=== PATIENT | female | born 1950 | race Caucasian/White ===

== ENCOUNTER 2020-07-15 02:17 | Observation (INO) ==
[2020-07-15] MEDS ORDERED: ONDANSETRON INJ 2 MG/ML 2 ML VIAL IV STA (03:18)
[2020-07-15] MEDS ORDERED: SODIUM CHLORIDE 0.9% 1000ML 1,000 ML IV SCH (03:30)
[2020-07-15 03:37] LABS: Basophils # (auto) 0.02 K/uL (0-0.2); Basophils % (auto) 0.2 %; Eosinophils % (auto) 1.1 %; Hematocrit (blood only) 37.7 % (37-47); Hemoglobin 13.1 g/dL (12.0-16.0); Immature Granulocytes # (auto) 0.02 K/uL (0.00-0.02); Immature Granulocytes % (auto) 0.2 %; Lymphocytes # (auto) 2.04 K/uL (1.2-3.4); Lymphocytes % (auto) 22.4 %; Mean Corpuscular Hemoglobin 30.7 pg (25-34); Mean Corpuscular Hgb Conc 34.7 g/dL (32-36); Mean Corpuscular Volume 88.3 fL (80-100); Monocytes # (auto) 0.59 K/uL (0.11-0.59); Monocytes % (auto) 6.5 %; Neutrophils # (auto) 6.34 K/uL (1.4-6.5); Neutrophils % (auto) 69.6 %; Platelet Count 401 K/uL (130-400); RDW Coefficient of Variation 13.8 % (11.5-14.5); RDW Standard Deviation 44.6 fL (36.4-46.3); Red Blood Count 4.27 M/uL (4.2-5.4); White Blood Count 9.11 K/uL (4.8-10.8)
[2020-07-15 03:42] LABS: Appearance Urine Clear (Clear); Bilirubin Urine Negative (Negative); Blood Urine Negative (Negative); Color Urine Yellow; Glucose Urine UA Negative (Negative); Ketones Urine 1+ (Negative); Leukocyte Esterase Urine Negative (Negative); Nitrite Urine Negative (Negative); Protein Urine Negative (Negative); Specific Gravity Urine 1.008 (1.000-1.030); Urobilinogen Urine Negative (Negative)
[2020-07-15 03:47] LABS: Partial Thromboplastin Time 26.6 Seconds (21.0-31.0)
[2020-07-15] MEDS: MoRPHine SULFATE 4 MG/ML 1 ML CARP\\VIAL IV PRN ×2 (03:52→06:05)
[2020-07-15 04:00] LABS: Alanine Aminotransferase 19 U/L (12-78); Amylase 120 U/L (25-115); Aspartate Aminotransferase 12 U/L (15-37); BUN Creatinine Ratio 12.8 (10-20); Blood Urea Nitrogen 11 mg/dl (7-18); Calcium 9.5 mg/dl (8.5-10.1); Carbon Dioxide 23 mmol/L (21-32); Chloride 108 mmol/L (98-107); Creatinine Clr Calc Pharmacy 63.8 ml/min; Est GFR (African American) 81.6; Est GFR (Non-African American) 70.4; Glucose 134 mg/dl (70-99); Magnesium 2.1 mg/dl (1.8-2.4); Potassium 3.5 mmol/L (3.5-5.1); Sodium 138 mmol/L (136-145)
[2020-07-15 04:06] LABS: Albumin Globulin Ratio 0.9 (0.9-2); Alkaline Phosphatase 79 U/L (45-117); Bilirubin,Total 0.5 mg/dl (0.2-1); Globulin 4.5 gm/dl (2.5-4.0); Lipase 1496 U/L (73-393); Total Protein 8.5 gm/dl (6.4-8.2); Troponin I < 0.015 ng/ml (0-0.045)
--- NOTE | 2020-07-15 05:21 | Emergency Department Note ---
ED Visit Note I saw this patient in conjunction with Rylan Mills PA-C. I agree with his decision making and treatment plan. .
--- NOTE | 2020-07-15 05:26 | Emergency Department Note ---
History of Present Illness General Chief complaint: Abdominal Pain Stated complaint: abdominal pain/gallbladder Time Seen by Provider: 07/15/20 03:02 History of Present Illness Maximum Pain Intensity: 2 This is a 69-year-old female presenting to the emergency department for evaluation of epigastric abdominal pain for the past 4 to 5 days. The patient was initially seen at [facility] for this on Friday,07/11/2020, where she had blood work, ultrasound, and CT scan was performed. The patient does have some of these records with her and she was diagnosed with chronic cholecystitis and discharged home to follow with a general surgeon of her choosing. The patient states over the past 24 hours her symptoms have significantly worsened and are much more intense. The discomfort does worsen with eating and drinking. She rates the pain a 9/10. She does not have distinct chest pain or lower abdominal pain. She is nauseated without vomiting. The patient is diabetic. Home Medications Medication Instructions Recorded Confirmed Type lisinopril 2.5 mg PO QPM 08/17/18 07/15/20 History simvastatin 10 mg PO HS 08/17/18 07/15/20 History lorazepam 1 mg tablet 1 mg PO Q12 PRN 03/03/19 07/15/20 History sitagliptin-metformin [Janumet XR] 1 tab PO DAILY 07/15/20 07/15/20 History Allergies Allergy/AdvReac Type Severity Reaction Status Date / Time No Known Allergies Allergy Verified 07/15/20 02:48 Past Med/Surg History Medical History Anxiety Diabetes Diabetes mellitus, type 2 Headache, paroxysmal hemicrania, chronic Temporal arteritis Uterine cancer Surgical History History of section History of colonoscopy History of hysterectomy Family History Father Diabetes Grandmother (Maternal) Diabetes Grandmother (Paternal) Diabetes Other Family history non-contributory Social History Smoking Status: Current some day smoker Second Hand Exposure: Yes; Do You Dip or Chew Tobacco: No; Tobacco Cessation Education Requested by Patient: No Hx Alcohol Use: Yes Alcohol type: wine Hx Substance Use: No Preferred Language: German Communication Ability: Effective Button Sewer Hand Required: No Beliefs That Will Affect Care: None Current Living Situation: Spouse Other Information That Helps Us Care for You: No Feels Safe at Home: Yes Safety Concerns: Feels Safe At This Time Assistive Devices: None Review of Systems A total of 10 systems reviewed and were otherwise negative Physical Exam Vital Signs Vital Signs - 24 hr 07/15/20 02:21 07/15/20 03:52 07/15/20 04:27 Temperature 36.4 C L Temperature Source Temporal Artery Scan Pulse Rate 86 Pulse Rate [Apical] 69 Respiratory Rate 20 18 Respiratory Effort / Characteristics Non-Labored Spontaneous Respiratory Depth Normal Normal Blood Pressure 122/78 Blood Pressure [Left Arm] 114/57 L Blood Pressure Mean 92 Blood Pressure Mean [Left Arm] 76 Pulse Oximetry 99 95 98 Oxygen Delivery Method Room Air Room Air Room Air Sepsis Recent Fever Within 48 Hours No Sepsis New/Unexplained Change in Mental Status N/A Sepsis Action Taken by Nursing No Action Required 07/15/20 06:06 Temperature Temperature Source Pulse Rate Pulse Rate [Apical] 70 Respiratory Rate 18 Respiratory Effort / Characteristics Non-Labored Spontaneous Respiratory Depth Normal Blood Pressure Blood Pressure [Left Arm] 119/62 Blood Pressure Mean Blood Pressure Mean [Left Arm] 81 Pulse Oximetry 97 Oxygen Delivery Method Room Air Sepsis Recent Fever Within 48 Hours Sepsis New/Unexplained Change in Mental Status Sepsis Action Taken by Nursing VITALS: Vitals are noted on the nurse's note and reviewed by myself. Vital signs stable. GENERAL: Well-developed, well-nourished, white female who appears moderately uncomfortable on examination. HEART: Regular rate and rhythm without murmurs gallops or rubs. LUNGS: Clear to auscultation bilaterally without wheezes, rales or rhonchi. No retractions or accessory muscle use. ABDOMEN: Positive normal bowel sounds x 4. Soft with epigastric tenderness and guarding. MUSCULOSKELETAL: No muscle atrophy, erythema, or edema noted. Full range of motion in all extremities. NEURO: Patient was alert and oriented to person place and time. CN II through XII grossly intact. Course Administered Medications Hydromorphone HCl (Hydromorphone Inj 1 Mg/Ml Syringe) 1 mg IV Q4 PRN PRN Reason: Pain Stop: 07/29/20 08:39 Last Admin: 07/16/20 00:25 Dose: 1 mg Documented by: [id number] Admin: 07/15/20 18:33 Dose: 1 mg Documented by: [id number] Lactated Ringer's (Lr) 1,000 mls @ 200 mls/hr IV .Q5H [facility] Stop: 08/14/20 08:39 Last Admin: 07/15/20 20:53 Dose: 200 mls/hr Documented by: [id number] Infusion: 07/15/20 20:29 Dose: 200 mls/hr Documented by: [id number] Admin: 07/15/20 15:29 Dose: 200 mls/hr Documented by: [id number] Infusion: 07/15/20 15:11 Dose: 200 mls/hr Documented by: [id number] Infusion: 07/15/20 14:20 Dose: 200 mls/hr Documented by: [id number] Infusion: 07/15/20 13:05 Dose: 0 mls/hr Documented by: [id number] Admin: 07/15/20 08:55 Dose: 200 mls/hr Documented by: [id number] Pantoprazole Sodium 40 mg/ (Syringe) 10 mls @ 5 mls/min IV DAILY@1100 [facility] Stop: 08/14/20 10:59 Last Admin: 07/15/20 10:51 Dose: 5 mls/min Documented by: [id number] Insulin Aspart (Insulin Aspart 100 Units/Ml 3 Ml Pen) 0 units SC ACHS [facility] Stop: 08/14/20 08:59 Last Admin: 07/15/20 20:42 Dose: Not Given Documented by: [id number] Admin: 07/15/20 17:37 Dose: Not Given Documented by: [id number] Admin: 07/15/20 13:20 Dose: Not Given Documented by: [id number] Admin: 07/15/20 09:30 Dose: Not Given Documented by: [id number] Lisinopril (Lisinopril 2.5 Mg Tab) 2.5 mg PO QPM [facility] Stop: 08/14/20 20:59 Last Admin: 07/15/20 20:53 Dose: Not Given Documented by: [id number] Lorazepam (Lorazepam 1 Mg Tab) 1 mg PO Q12 PRN PRN Reason: Anxiety Stop: 08/14/20 08:39 Last Admin: 07/15/20 13:05 Dose: 1 mg Documented by: [id number] Ondansetron HCl (Ondansetron Inj 2 Mg/Ml 2 Ml Vial) 4 mg IV Q6H PRN PRN Reason: Nausea Stop: 08/14/20 08:39 Last Admin: 07/15/20 19:24 Dose: 4 mg Documented by: [id number] Discontinued Medications Hydromorphone HCl (Hydromorphone Inj 0.5 Mg/0.5 Ml Syr) 0.5 mg IV Q3H PRN PRN Reason: Pain Stop: 07/29/20 08:39 Last Admin: 07/15/20 15:32 Dose: 0.5 mg Documented by: [id number] Admin: 07/15/20 10:50 Dose: 0.5 mg Documented by: [id number] Sodium Chloride (Nss 1000ml) 1,000 mls @ 999 mls/hr IV .Q1H1M [facility] Stop: 07/15/20 04:30 Last Infusion: 07/15/20 04:54 Dose: 0 mls/hr Documented by: [id number] Admin: 07/15/20 03:52 Dose: 999 mls/hr Documented by: [id number] Morphine Sulfate (Morphine Sulfate 4 Mg/Ml 1 Ml Carp\Vial) 4 mg IV Q15M PRN PRN Reason: Pain Stop: 07/29/20 03:17 Last Admin: 07/15/20 06:05 Dose: 4 mg Documented by: [id number] Admin: 07/15/20 03:52 Dose: 4 mg Documented by: [id number] Ondansetron HCl (Ondansetron Inj 2 Mg/Ml 2 Ml Vial) 4 mg IV NOW STA Stop: 07/15/20 03:19 Last Admin: 07/15/20 03:51 Dose: 4 mg Documented by: [id number] Medical Decision Making Differential Diagnosis Differential diagnosis: Etiologies such as biliary colic, cholecystitis, hepatitis, pancreatitis, cardiac disease, pancreatitis, gastritis, peptic ulcer disease, appendicitis, cystitis, diverticulitis, mesenteric ischemia, inflammatory bowel disease, ileus, bowel obstruction, testicular/adnexal torsion, aortic pathology, shingles, as well as others were considered Laboratory Data Result diagrams: 07/15/20 02:37 07/15/20 02:37 Lab Results 07/15/20 07/15/20 07/15/20 Range/Units 02:37 02:37 02:37 WBC 9.11 (4.8-10.8) K/uL RBC 4.27 (4.2-5.4) M/uL Hgb 13.1 (12.0-16.0) g/dL Hct 37.7 (37-47) % MCV 88.3 (80-100) fL MCH 30.7 (25-34) pg MCHC 34.7 (32-36) g/dL RDW Std Deviation 44.6 (36.4-46.3) fL RDW Coeff of Kyle 13.8 (11.5-14.5) % Plt Count 401 H (130-400) K/uL MPV 10.0 (7.4-10.4) fL Immature Gran % (Auto) 0.2 % Neut % (Auto) 69.6 % Lymph % (Auto) 22.4 % Brown % (Auto) 6.5 % Eos % (Auto) 1.1 % Baso % (Auto) 0.2 % Neut # (Auto) 6.34 (1.4-6.5) K/uL Lymph # (Auto) 2.04 (1.2-3.4) K/uL Brown # (Auto) 0.59 (0.11-0.59) K/uL Eos # (Auto) 0.10 (0-0.5) K/uL Baso # (Auto) 0.02 (0-0.2) K/uL Immature Gran # (Auto) 0.02 (0.00-0.02) K/uL PT 10.0 (9.0-12.0) Seconds INR 1.0 (0.9-1.1) APTT 26.6 (21.0-31.0) Seconds PTT Ratio 1.0 Sodium 138 (136-145) mmol/L Potassium 3.5 (3.5-5.1) mmol/L Chloride 108 H (98-107) mmol/L Carbon Dioxide 23 (21-32) mmol/L Anion Gap 7.0 (3-11) BUN 11 (7-18) mg/dl Creatinine 0.85 (0.6-1.2) mg/dl Est Cr Clr Drug Dosing 63.8 ml/min Est GFR ( Amer) 81.6 Est GFR (Non-Af Amer) 70.4 BUN/Creatinine Ratio 12.8 (10-20) Glucose 134 H (70-99) mg/dl Calcium 9.5 (8.5-10.1) mg/dl Magnesium 2.1 (1.8-2.4) mg/dl Total Bilirubin 0.5 (0.2-1) mg/dl AST 12 L (15-37) U/L ALT 19 (12-78) U/L Alkaline Phosphatase 79 (45-117) U/L Troponin I < 0.015 (0-0.045) ng/ml Total Protein 8.5 H (6.4-8.2) gm/dl Albumin 4.0 (3.4-5.0) gm/dl Globulin 4.5 H (2.5-4.0) gm/dl Albumin/Globulin Ratio 0.9 (0.9-2) Amylase 120 H (25-115) U/L Lipase 1496 H (73-393) U/L Urine Color Urine Appearance (Clear) Urine pH (4.5-7.5) Ur Specific [place] (1.000-1.030) Urine Protein (Negative) Urine Glucose (UA) (Negative) Urine Ketones (Negative) Urine Blood (Negative) Urine Nitrite (Negative) Urine Bilirubin (Negative) Urine Urobilinogen (Negative) Ur Leukocyte Esterase (Negative) COVID-19 Eval Order SARS-CoV-2, RNA, NAAT (NEGATIVE) 07/15/20 07/15/20 07/15/20 Range/Units 02:37 03:45 03:45 WBC (4.8-10.8) K/uL RBC (4.2-5.4) M/uL Hgb (12.0-16.0) g/dL Hct (37-47) % MCV (80-100) fL MCH (25-34) pg MCHC (32-36) g/dL RDW Std Deviation (36.4-46.3) fL RDW Coeff of Kyle (11.5-14.5) % Plt Count (130-400) K/uL MPV (7.4-10.4) fL Immature Gran % (Auto) % Neut % (Auto) % Lymph % (Auto) % Brown % (Auto) % Eos % (Auto) % Baso % (Auto) % Neut # (Auto) (1.4-6.5) K/uL Lymph # (Auto) (1.2-3.4) K/uL Brown # (Auto) (0.11-0.59) K/uL Eos # (Auto) (0-0.5) K/uL Baso # (Auto) (0-0.2) K/uL Immature Gran # (Auto) (0.00-0.02) K/uL PT (9.0-12.0) Seconds INR (0.9-1.1) APTT (21.0-31.0) Seconds PTT Ratio Sodium (136-145) mmol/L Potassium (3.5-5.1) mmol/L Chloride (98-107) mmol/L Carbon Dioxide (21-32) mmol/L Anion Gap (3-11) BUN (7-18) mg/dl Creatinine (0.6-1.2) mg/dl Est Cr Clr Drug Dosing ml/min Est GFR ( Amer) Est GFR (Non-Af Amer) BUN/Creatinine Ratio (10-20) Glucose (70-99) mg/dl Calcium (8.5-10.1) mg/dl Magnesium (1.8-2.4) mg/dl Total Bilirubin (0.2-1) mg/dl AST (15-37) U/L ALT (12-78) U/L Alkaline Phosphatase (45-117) U/L Troponin I (0-0.045) ng/ml Total Protein (6.4-8.2) gm/dl Albumin (3.4-5.0) gm/dl Globulin (2.5-4.0) gm/dl Albumin/Globulin Ratio (0.9-2) Amylase (25-115) U/L Lipase (73-393) U/L Urine Color Yellow Urine Appearance Clear (Clear) Urine pH 6.0 (4.5-7.5) Ur Specific [place] 1.008 (1.000-1.030) Urine Protein Negative (Negative) Urine Glucose (UA) Negative (Negative) Urine Ketones 1+ H (Negative) Urine Blood Negative (Negative) Urine Nitrite Negative (Negative) Urine Bilirubin Negative (Negative) Urine Urobilinogen Negative (Negative) Ur Leukocyte Esterase Negative (Negative) COVID[facility]19 [facility] SARS-CoV-2, RNA, NAAT NEGATIVE (NEGATIVE) Imaging Data Radiologist's Impression: ABDOMINAL ULTRASOUND, RIGHT UPPER QUADRANT HISTORY: Right upper quadrant pain.. COMPARISON: None. FINDINGS: Pancreas: The pancreatic tail is obscured by line bowel gas. Irregular appearance to the pancreas with possible perihepatic fluid. Recommend correlation with pancreatic enzymes to assess for an acute pancreatitis. Liver: The liver is echogenic consistent with fatty change. Gallbladder: No gallbladder wall thickening. No gallstones. CBD: 6 mm. Right kidney: No hydronephrosis. IMPRESSION: 1. An irregular appearance to the pancreas which may demonstrate trace peripancreatic fluid. Recommend correlation with pancreatic enzymes to exclude the possibility of an acute pancreatitis. 2. Hepatic steatosis. 3. Normal gallbladder. No gallstones. ECG Data Attestation: I personally reviewed and interpreted this ECG as follows: Indication: abdominal pain Additional Comments: Normal sinus rhythm @71bpm Normal ECG When compared with ECG of 17-AUG-2018 20:03, No significant change was found MDM Narrative Physical exam and history were performed. Nursing notes, EMR, and Medication List were personally reviewed. Patient appears to have epigastric abdominal discomfort bringing her to the ER. She has been having discomfort for the past several days and is with epigastric tenderness on exam. IV access was established and labs were obtained. She was treated with IV morphine and IV Zofran. The patient was sent to ultrasound for further evaluation. The patient's blood work is as above and was reviewed. She does not have a si gnificantly elevated white blood cell count, gross anemia, or significant electrolyte imbalance. Transaminases are not elevated. Troponin x1 is negative. The patient does have elevated lipase and amylase which would correlate with pancreatitis based on labs and exam. Ultrasound was performed and reviewed by myself and radiology, and also seems to correlate with the pancreatitis. Overall the patient does not appear well for discharge home. The case was discussed with the on-call [facility] hospitalist who agreed to evaluate the patient here in the ER. Please see their dictation for further patient course, plan, and disposition. The chart was completed utilizing [employer] ([employer] Voice Recognition Software. Grammatical errors, random word insertions, pronoun errors, and incomplete sen tences are an occasional consequence of this system due to software limitations, ambient noise, and hardware issues. Any formal questions or concerns about the content, text, or information contained within the body of this dictation should be directly addressed to the provider for clarification. . Impression & Plan Midepigastric pain, Pancreatitis Discharge Plan Visit Data Chief Complaint: Abdominal Pain Stated Complaint: abdominal pain/gallbladder ED Provider: Delilah Pelletier ED Midlevel Provider: Rylan Mills Discharge Problem: Midepigastric pain, Pancreatitis Patient Disposition: Admitted As Inpatient Discharge Instructions Interventions: ED Discharge Assessment Last Done: 07/15/20 08:30
--- NOTE | 2020-07-15 08:32 | Ultrasound Report ---
ABDOMINAL ULTRASOUND, RIGHT UPPER QUADRANT HISTORY: Right upper quadrant pain.. COMPARISON: None. FINDINGS: Pancreas: The pancreatic tail is obscured by line bowel gas. Irregular appearance to the pancreas wit h possible perihepatic fluid. Recommend correlation with pancreatic enzymes to assess for an acute pa ncreatitis. Liver: The liver is echogenic consistent with fatty change. Gallbladder: No gallbladder wall thickening. No gallstones. CBD: 6 mm. Right kidney: No hydronephrosis. IMPRESSION: 1. An irregular appearance to the pancreas which may demonstrate trace peripancreatic fluid. Recommen d correlation with pancreatic enzymes to exclude the possibility of an acute pancreatitis. 2. Hepatic steatosis. 3. Normal gallbladder. No gallstones. ACT 112: Negative or not required by law. Electronically signed by: Edgar Cotter M.D. 07/15/2020 8:30 AM
[2020-07-15] MEDS ORDERED: LORazepam 1 MG TAB PO PRN (08:40)
[2020-07-15] MEDS ORDERED: ACETAMINOPHEN 325 MG TAB PO PRN (08:40)
[2020-07-15] MEDS ORDERED: ONDANSETRON INJ 2 MG/ML 2 ML VIAL IV PRN (08:40)
[2020-07-15] MEDS: LACTATED RINGER'S 1,000 ML IV SCH ×3 (08:55→20:53)
--- NOTE | 2020-07-15 09:20 | Surgery Consultation ---
Date of Consultation July 15, 2020 Assessment & Plan (1) Pancreatitis: -US images and results reviewed, LFT's are all normal -Unsure of the etiology of her pancreatitis, but without cholelithiasis, there is no role currently for cholecystectomy -Agree with GI evaluation for possible EUS/ERCP -Would continue NPO and aggressive IVF hydration -If does not improve, could consider a CT with IV contrast to evaluate pancreas -No plans for surgical intervention currently History of Present Illness Reason for Consultation: Pancreatitis Attending Physician: Laura Kaba MD History of Present Illness This is a 69 yo female who presented to the hospital with abdominal pain. She states she started having sharp upper abdominal pain without radiation one week ago. She was seen in ER in [place] and US there showed thickened GB wall and she had pancreatitis. She was discharged and told to follow up with a surgeon for cholecystectomy. She returned to ER here last night due to increased pain, some nausea, no emesis. No constipation or diarrhea. No melena or hematochezia. No jaundice, tea-colored urine or acholic stools. No history of ETOH use. No new medications. No history of triglyceridemia. Allergies Allergy/AdvReac Type Severity Reaction Status Date / Time No Known Allergies Allergy Verified 07/15/20 02:48 Home Medications Medication Instructions Recorded Confirmed Type lisinopril 2.5 mg PO QPM 08/17/18 07/15/20 History simvastatin 10 mg PO HS 08/17/18 07/15/20 History lorazepam 1 mg tablet 1 mg PO Q12 PRN 03/03/19 07/15/20 History sitagliptin-metformin [Janumet XR] 1 tab PO DAILY 07/15/20 07/15/20 History Patient History Medical History Anxiety Diabetes Diabetes mellitus, type 2 Headache, paroxysmal hemicrania, chronic Temporal arteritis Uterine cancer Surgical History History of section History of colonoscopy History of hysterectomy Family History Father Diabetes Grandmother (Maternal) Diabetes Grandmother (Paternal) Diabetes Other Family history non-contributory Social History Smoking Status: Current every day smoker Second Hand Exposure: No; Hx Alcohol Use: No Hx Substance Use: No Preferred Language: Guatemalan Communication Ability: Effective Emergency Crew Supervisor Required: No Beliefs That Will Affect Care: None Current Living Situation: Spouse Feels Safe at Home: Yes Assistive Devices: Glasses Review of Systems Constitutional: no fever and no chills Eyes: no blind spots and no worsening vision Ear, Nose, Mouth, Throat: no ear pain and no hearing loss Respiratory: no cough and no dyspnea Cardiovascular: no chest pain and no dyspnea on exertion Gastrointestinal: + abdominal pain and + nausea; no vomiting, no constipation, no diarrhea/loose stools, no blood in stools and no melena Genitourinary: no dysuria Musculoskeletal: no back pain and no neck pain Integumentary: no rash, no non-healing lesions and no skin ulcer Neurologic: + headache(s); no falls Psychiatric: no behavioral changes and no depression Hematologic / Lymphatic: no easy bleeding and no easy bruising Physical Exam Constitutional: WD/WN, vitals as above Eyes: PERRL, conjunctivae normal, anicteric sclerae ENMT: external ear and nose normal, oropharynx normal Neck: trachea midline, no thyromegaly Respiratory: normal respiratory effort, lungs clear to auscultation Cardiovascular: RRR, no murmur, no edema Gastrointestinal (Abdomen): Inspection/Auscultation: abdomen normal to inspection; abdomen not distended Percussion/Palpation: + abdomen tender (epigatrum), + guarding (epigastrum) and abdomen soft; no hernia Musculoskeletal: no cyanosis or clubbing, extremities motor strength 5/5 Skin: no rashes, warm and dry Neurologic: PERRL, EOMI, accommodation nl, no face palsy, no dysarthria Psychiatric: A+Ox3, euthymic affect Lymphatic: no inguinal lymphadenopathy Results & Data ([facility]) Vital Signs (Past 12 Hours) Vital Signs Temp Pulse Pulse Resp BP BP Pulse Ox 07/15/20 07:59 66 14 111/64 96 07/15/20 06:06 70 18 119/62 97 07/15/20 04:27 69 18 114/57 L 98 07/15/20 03:52 95 07/15/20 02:21 36.4 C L 86 20 122/78 99 Gallbladder Ultrasound IMPRESSION: 1. An irregular appearance to the pancreas which may demonstrate trace peripancreatic fluid. Recommend correlation with pancreatic enzymes to exclude the possibility of an acute pancreatitis. 2. Hepatic steatosis. 3. Normal gallbladder. No gallstones. PG Care Time/CCT Total # of Minutes Spent Total Time Spent with Patient: Total time spent is greater than 50% in coordination of care (as documented) at patient's floor/unit and/or counseling patient: Coding Level of Care Code 56232 Initial In Care Lvl 3 Diagnoses Pancreatitis K85.90 Chronicity: acute Pancreatitis type: unspecified pancreatitis type (1) Pancreatitis Chronicity: acute Pancreatitis type: unspecified pancreatitis type
[2020-07-15] MEDS: INSULIN ASPART 100 UNITS/ML 3 ML PEN SC SCH ×4 (09:30→20:42)
--- NOTE | 2020-07-15 09:31 | History and Physical Report ---
DATE OF ADMISSION: 07/15/2020 CHIEF COMPLAINT: Abdominal pain. HISTORY OF PRESENT ILLNESS: A 69-year-old male with past medical history significant for type 2 diabetes, hyperlipidemia, hypertension, vitamin D deficiency, trigeminal neuralgia, generalized anxiety disorder, presents with abdominal pain. The patient says since last Friday, she was having abdominal pain in the epigastric region radiating to lower abdomen and back, severe in nature, associated with nausea and on Friday she went to [facility] and CAT scan was done and she was told has chronic cholecystitis and to follow with the surgeon and to be on low-fat diet. She got an appointment on coming Friday at the [facility], and eating just jello, but the pain was not getting better, it got worse, which prompted her to come to the ER today and here lipase is elevated, so admitting for pancreatitis. Denies any fever, chills, no diarrhea or constipation. Normal bladder movements. Has chronic headaches. No blurred vision, no earache, no runny nose, no sore throat, no cough, no dysphagia, no chest pain or shortness of breath. No rash. Otherwise, ambulates and climbs steps okay. ALLERGIES: No known drug allergies. PAST MEDICAL HISTORY: As mentioned above. PAST SURGICAL HISTORY: , colonoscopy, dental surgery, right temporal biopsy, partial hysterectomy. MEDICATIONS: The patient is on lisinopril 2.5 mg p.o. p.m., lorazepam 1 mg p.o. b.i.d. p.r.n., simvastatin 10 mg p.o. at bedtime, Janumet XR 1 tablet p.o. daily. FAMILY HISTORY: Significant for father had diabetes and heart disorder. Mother has hypertension, heart disorder. Sister has diabetes, hypertension. Brother has hypertension. SOCIAL HISTORY: . Smokes 1 pack a day, started in 2017. Alcohol, drinks socially. No drug use. REVIEW OF SYMPTOMS: As per HPI. Rest of review of symptoms negative. PHYSICAL EXAMINATION: GENERAL: The patient is of moderate build, not in acute distress. VITAL SIGNS: Temperature 36.4, pulse 70, respiratory rate 18, blood pressure 119/62, oxygen 97% on room air. HEENT: Pupils equal, round, reactive to light. Oral mucosa dry. NECK: No JVD, no neck masses. CARDIOVASCULAR: S1, S2 heard, regular rate and rhythm, no murmur, no gallop. RESPIRATORY SYSTEM: Normal AP diameter. No accessory muscle use. No wheezing, no crackles. ABDOMEN: Epigastric tenderness present. Mild guarding, no rigidity. No distention. CENTRAL NERVOUS SYSTEM: Cranial nerves II-XII grossly intact, nonfocal. EXTREMITIES: No edema, no erythema. LABORATORY DATA: WBC 9.1, hemoglobin 13.1, hematocrit 37.7, platelets 401, PT 10, INR 1, APTT 26.6. Sodium 138, potassium 3.5, chloride 108, bicarbonate 23, BUN 11, creatinine 0.8, serum glucose 134, calcium 9.5, magnesium 2.1, total bilirubin 0.5, AST 12, ALT 19, alkaline phosphatase 79. Troponin I less than 0.015, amylase 120, lipase 1496. SARS-CoV-2 RNA negative. IMAGING: Gallbladder ultrasound preliminary report showing, unremarkable gallbladder without stones or sludge, no sonographic Grant sign. No wall thickening. The common bile duct measures 6 mm, echogenic liver, likely fatty infiltration. No hydronephrosis, echogenic and slightly irregular appearance of the pancreas, correlate clinically with pancreatic enzymes. EKG: Normal sinus rhythm with rate of 71, no significant change was found. ASSESSMENT AND PLAN: This is a 69-year-old male who presents with abdominal pain and found to have pancreatitis. 1. Acute pancreatitis with elevated lipase at 1496, gallbladder ultrasound showing possible pancreatitis. We will follow the final report. The patient was recently in [facility] on last Friday and CAT scan was done showing possible chronic cholecystitis. We will await the final ultrasound report. We will treat pancreatitis with IV Ringer's lactate 200 mL per hour, n.p.o., IV pain medication p.r.n., IV antiemetics p.r.n. and GI consult. We will also consult surgery for possible chronic cholecystitis. Monitor in the medical floor. 2. Diabetes. Hold home p.o. medication, place on insulin sliding scale. Follow blood sugars. 3. History of hyperlipidemia. Continue statin. 4. History of hypertension, on lisinopril, we will monitor the blood pressure. 5. History of the generalized anxiety disorder, on Ativan p.r.n. 6. Deep venous thrombosis prophylaxis, sequential compression devices. DISPOSITION: Closely monitor in the medical floor. Expect to discharge home and follow with family doctor. Level 1 full code. MTDD
--- NOTE | 2020-07-15 10:15 | Electrocardiogram Report ---
Test Reason : Blood Pressure : / mmHG Vent. Rate : 071 BPM Atrial Rate : 071 BPM P-R Int : 186 ms QRS Dur : 068 ms QT Int : 406 ms P-R-T Axes : 066 024 058 degrees QTc Int : 441 ms Normal sinus rhythm Normal ECG When compared with ECG of 17-AUG-2018 20:03, No significant change was found Confirmed by Marques Santos ([id number]) on 07/15/2020 10:14:47 AM Referred By: REFERRED SELF Confirmed By:Marques Santos
[2020-07-15] MEDS: HYDROmorphone INJ 0.5 MG/0.5 ML SYR IV PRN ×2 (10:50→15:32)
[2020-07-15] MEDS ORDERED: PANTOprazole 40 MG in SYRINGE 0 ML IV SCH (11:00)
--- NOTE | 2020-07-15 12:03 | Gastrointestinal Consultation ---
Date of Consultation July 15, 2020 Assessment & Plan (1) Midepigastric pain: (2) Pancreatitis: Check MRCP now Continue IV LR at 200 ml/hour for first 48 hours Continue Narcotic analgesics and antiemetics as needed Further recommendations to follow above noted testing History of Present Illness Reason for Consultation: Pancreatitis Attending Physician: Laura Kaba MD History of Present Illness Lotus Dutton is a pleasant 69 yo CF who presented to the ER early this AM with complaints of mid-epigastric abdominal pain. She states that the pain began approximately 1 week ago and has been intermittent. She describes the pain as sharp and stabbing with peak pain of 8-9/10 in intensity. She has had associa bry nausea with vomiting, but denies any hematemesis. She states that on 07/11 she presented to [facility] for similar complaints and underwent CT imaging and routine lab work, but was discharged and was told that "I may need my gall bladder out." She states they advised a low fat diet and to come to our ER if her symptoms returned. She arrived in our ER at approximately 1 AM today and was noted to have an elevated lipase and US imaging consistent with pancreatitis. She did not have any biliary ductal dilation noted, and did not have any cholelithiasis. She was admitted and placed on IV LR at 200 ml/hour and was treated supportively with IV analgesia. At the time I saw the patient she continued to complain of mid-epigastric abdominal pain which she rated as 6/10 in intensity. She does note that narcotic analgesics help. She exhibits no drug seeking behavior. She states that she has never had pancreatitis previously, has no family history of pancreatitis, has not had any sick cont acts, and does not drink alcohol regularly. She denies any further complaints. Allergies Allergy/AdvReac Type Severity Reaction Status Date / Time No Known Allergies Allergy Verified 07/15/20 02:48 Home Medications Medication Instructions Recorded Confirmed Type lisinopril 2.5 mg PO QPM 08/17/18 07/15/20 History simvastatin 10 mg PO HS 08/17/18 07/15/20 History lorazepam 1 mg tablet 1 mg PO Q12 PRN 03/03/19 07/15/20 History sitagliptin-metformin [Janumet XR] 1 tab PO DAILY 07/15/20 07/15/20 History Patient History Medical History Anxiety Diabetes Diabetes mellitus, type 2 Headache, paroxysmal hemicrania, chronic Temporal arteritis Uterine cancer Surgical History History of section History of colonoscopy History of hysterectomy Family History Father Diabetes Grandmother (Maternal) Diabetes Grandmother (Paternal) Diabetes Other Family history non-contributory Social History Smoking Status: Current every day smoker Second Hand Exposure: No; Hx Alcohol Use: No Hx Substance Use: No Preferred Language: Sinhala Communication Ability: Effective Hospice Art Therapist Required: No Beliefs That Will Affect Care: None Current Living Situation: Spouse Feels Safe at Home: Yes Assistive Devices: None Review of Systems Review of Systems: All systems reviewed & are unremarkable except as noted in HPI & below Physical Exam Constitutional: WD/WN, vitals as above Eyes: + anicteric sclerae ENMT: external ear and nose normal, oropharynx normal Neck: trachea midline, no thyromegaly Respiratory: normal respiratory effort, lungs clear to auscultation Cardiovascular: RRR, no murmur, no edema Gastrointestinal (Abdomen): Inspection/Auscultation: abdomen normal to inspection and normal bowel sounds; abdomen not distended Percussion/Palpation: + abdomen tender (mid-epigastric area) and abdomen soft Skin: no rashes, warm and dry Psychiatric: A+Ox3, euthymic affect Results & Data ([facility]) Vital Signs (Past 12 Hours) Vital Signs Temp Pulse Pulse Pulse Resp BP BP 07/15/20 08:25 36.7 C 72 16 110/67 07/15/20 07:59 66 14 111/64 07/15/20 06:06 70 18 119/62 07/15/20 04:27 69 18 114/57 L 07/15/20 03:52 07/15/20 02:21 36.4 C L 86 20 122/78 Pulse Ox 07/15/20 08:25 97 07/15/20 07:59 96 07/15/20 06:06 97 07/15/20 04:27 98 07/15/20 03:52 95 07/15/20 02:21 99 PG Care Time/CCT Total # of Minutes Spent Total Time Spent with Patient: Total time spent is greater than 50% in coordination of care (as documented) at patient's floor/unit and/or counseling patient: Coding Level of Care Code 63746 Inpt Consult Level 4 Diagnoses Midepigastric pain R10.13 Pancreatitis K85.90 Chronicity: acute Pancreatitis type: unspecified pancreatitis type (1) Pancreatitis Chronicity: acute Pancreatitis type: unspecified pancreatitis type
--- NOTE | 2020-07-15 14:42 | Magnetic Resonance Report ---
MR MRCP HISTORY: Abnormal ultrasound. Pancreatitis TECHNIQUE: MRCP of the abdomen was performed without contrast according to standard departmental prot ocol. COMPARISON STUDY: Abdominal ultrasound 07/15/2020. FINDINGS: Mild motion artifact resulting in suboptimal evaluation. Lung bases are clear. The liver, g allbladder, spleen, adrenal glands, and kidneys are within normal limits. No retroperitoneal lymphade nopathy. Normal caliber abdominal aorta. Mild thickening involving the second and third portions of t he duodenum with a small amount of adjacent fluid. There is also mild edema both within and surroundi ng the pancreatic head. Findings favor an acute pancreatitis. A duodenitis could also have a similar appearance. The main pancreatic duct does not appear dilated. The common bile duct is suboptimally as sessed due to the motion artifact but appears to be normal and course and caliber. There are no filli ng defects within the common bile duct to suggest a stone. The common bile duct measures 4 mm in diam eter. The main portal vein appears patent. IMPRESSION: 1. There is edema both within and surrounding the pancreatic head and proximal duodenum. This favors an acute pancreatitis. A duodenitis could also have a similar appearance but is likely reactive. Benjamin mmend correlation with pancreatic enzymes. 2. The common bile duct is normal in course and caliber. No evidence for cholelithiasis or choledocho lithiasis. 3. Follow-up nonemergent dedicated CT or MRI of the pancreas is recommended once the patient's pancre atitis has resolved to exclude the less likely possibility of an underlying lesion. ACT 112: Negative or not required by law. Electronically signed by: Edgar Cotter M.D. 07/15/2020 2:41 PM
--- NOTE | 2020-07-15 15:58 | Hospitalist Progress Note ---
Date of Service July 15, 2020 Assessment & Plan (1) Pancreatitis: acute pancreatitis ; admitted with epigastric pain , nauseas with elevated lipase level appreciate input from GI and surgery MRCP( to R/o gall stone pancreatitis ) shows no evidence of choledocholithiasis normal LFT , no gall bladder disease -per surgery -cholecystectomy is not indicated in this setting cont bowel rest , ordered for clear liquid , NPO past midnight cont Aggressive IV hydration . pain control ordered for fasting lipid panel in am r/o severe hypertriglyceridemia ordered for repeat CMP , lipase level in am no evidence of infection , no fever or chills, normal white count DISPOSITION ; plan to d/c home in next 1-2 days if medically stable Admission and Anticipated Discharge Date Admission Date: July 15, 2020 Subjective admitted with epigastric pain /acute pancreatitis : pt reports improvement of abdominal pain after getting IV pain meds nausea is minimum able to tolerate clear liquid diet no fever or chills no chest pain or SOB Review of Systems Review of Systems: All systems reviewed & are unremarkable except as noted in Subjective Physical Exam Constitutional: WD/WN, vitals as above Eyes: PERRL, conjunctivae normal, anicteric sclerae ENMT: external ear and nose normal, oropharynx normal Neck: trachea midline, no thyromegaly Respiratory: normal respiratory effort, lungs clear to auscultation Cardiovascular: RRR, no murmur, no edema Gastrointestinal (Abdomen): Percussion/Palpation: + abdomen tender (epigastric tenderness ) and abdomen soft Musculoskeletal: no cyanosis or clubbing, extremities motor strength 5/5 Skin: no rashes, warm and dry Neurologic: PERRL, EOMI, accommodation nl, no face palsy, no dysarthria Psychiatric: A+Ox3, euthymic affect Results & Data Results & Data ([facility]) Vital Signs (Past 12 Hours) Vital Signs Temp Pulse Pulse Resp BP Pulse Ox 07/15/20 14:44 36.7 C 64 16 112/71 95 07/15/20 08:25 36.7 C 72 16 110/67 97 07/15/20 07:59 66 14 111/64 96 07/15/20 06:06 70 18 119/62 97 07/15/20 04:27 69 18 114/57 L 98 (1) Pancreatitis Chronicity: acute Pancreatitis type: unspecified pancreatitis type
[2020-07-15] MEDS: HYDROmorphone INJ 1 MG/ML SYRINGE IV PRN (18:33)
[2020-07-15] MEDS ORDERED: HYDROmorphone INJ 0.5 MG/0.5 ML SYR IV PRN (20:30)
[2020-07-15] MEDS: lisinopril 2.5 MG TAB PO SCH (20:53)
[2020-07-15] MEDS ORDERED: SIMVASTATIN 10 MG TAB PO SCH (21:00)
[2020-07-16] MEDS: HYDROmorphone INJ 1 MG/ML SYRINGE IV PRN (00:25)
[2020-07-16] MEDS: LACTATED RINGER'S 1,000 ML IV SCH ×2 (01:56→06:38)
[2020-07-16 05:36] LABS: Basophils # (auto) 0.02 K/uL (0-0.2); Basophils % (auto) 0.3 %; Eosinophils # (auto) 0.06 K/uL (0-0.5); Eosinophils % (auto) 0.9 %; Hemoglobin 10.2 g/dL (12.0-16.0); Immature Granulocytes # (auto) 0.01 K/uL (0.00-0.02); Immature Granulocytes % (auto) 0.2 %; Lymphocytes # (auto) 1.97 K/uL (1.2-3.4); Lymphocytes % (auto) 31.1 %; Mean Corpuscular Hemoglobin 30.3 pg (25-34); Mean Platelet Volume 9.5 fL (7.4-10.4); Monocytes # (auto) 0.51 K/uL (0.11-0.59); Monocytes % (auto) 8.1 %; Neutrophils # (auto) 3.76 K/uL (1.4-6.5); Neutrophils % (auto) 59.4 %; Platelet Count 279 K/uL (130-400); RDW Coefficient of Variation 13.6 % (11.5-14.5); RDW Standard Deviation 44.7 fL (36.4-46.3); Red Blood Count 3.37 M/uL (4.2-5.4); White Blood Count 6.33 K/uL (4.8-10.8)
[2020-07-16 05:53] LABS: Albumin Level 2.9 gm/dl (3.4-5.0); BUN Creatinine Ratio 8.9 (10-20); Calcium 8.1 mg/dl (8.5-10.1); Creatinine Clr Calc Pharmacy 73.6 ml/min; Est GFR (African American) 98.1; Est GFR (Non-African American) 84.6; Magnesium 1.9 mg/dl (1.8-2.4)
[2020-07-16 05:58] LABS: Albumin Globulin Ratio 0.8 (0.9-2); Bilirubin,Total 0.3 mg/dl (0.2-1); Globulin 3.7 gm/dl (2.5-4.0); Total Protein 6.6 gm/dl (6.4-8.2)
--- NOTE | 2020-07-16 07:42 | Communication Note ---
Date of Service: July 16, 2020 hb drop noted from 13-10 possible dilutional -pt receiving aggressive iv fluid resuscitation for acute pancreatis no evidence of GI bleed monitor Laura Kaba MD
--- NOTE | 2020-07-16 08:23 | Gastroenterology Progress Note ---
Date of Service July 16, 2020 Assessment & Plan (1) Pancreatitis: Discussed case with Dr. Kaba of Hospitalist service Continue supportive care and advance to low fat diet Advised her to abstain from all alcohol as it is a known pancreatic toxin She will need [facility] for possible [facility] Admission and Anticipated Discharge Date Admission Date: July 15, 2020 Subjective Feeling slightly better today. Still with midepigastric abdominal pain, now 3/10 in intensity, non-radiating, alleviated with narcotic analgesics. She denies any fevers, chills, nausea, vomiting, diarrhea, hematemesis, melena or hematochezia. I discussed results of MRCP with her, including evidence of acute pancreatitis, but no cholelithiasis, or dilation of the CBD or pancreatic duct. Physical Exam Constitutional: WD/WN, vitals as above Respiratory: normal respiratory effort, lungs clear to auscultation Cardiovascular: RRR, no murmur, no edema Gastrointestinal (Abdomen): Inspection/Auscultation: abdomen normal to inspection and normal bowel sounds; abdomen not distended Percussion/Palpation: + abdomen tender (Epigastric area) and abdomen soft Psychiatric: A+Ox3, euthymic affect Results & Data Results & Data ([facility]) Vital Signs (Past 12 Hours) Vital Signs Temp Pulse Pulse Resp BP Pulse Ox 07/16/20 07:03 36.7 C 67 16 122/78 93 07/15/20 23:44 36.6 C 62 14 100/60 95 07/15/20 20:54 59 L 117/70 PG Care Time/CCT Total # of Minutes Spent Total Time Spent with Patient: Total time spent is greater than 50% in coordination of care (as documented) at patient's floor/unit and/or counseling patient: Coding Level of Care Code 02605 Subseq Obs Care Lvl 3 Diagnoses Pancreatitis K85.90
[2020-07-16] MEDS ORDERED: ALUMINUM/MAGNESIUM SUSP 30 ML UDC PO PRN (08:54)
[2020-07-16] MEDS: INSULIN ASPART 100 UNITS/ML 3 ML PEN SC SCH ×4 (09:02→21:20)
[2020-07-16] MEDS: PANTOprazole 40 MG TAB PO SCH (09:40)
--- NOTE | 2020-07-16 10:07 | Surgery Progress Note ---
Date of Service July 16, 2020 Assessment & Plan (1) Pancreatitis: -No plans for any surgical intervention -Agree with follow up with GI for possible EUS -Surgery with no further recommendations. Will sign off at this time. Please call with any questions or concerns. Admission and Anticipated Discharge Date Admission Date: July 15, 2020 Subjective Pt seen and examined. Pain slightly improved. Afebrile. Passing flatus, no BM. Review of Systems Review of Systems: All systems reviewed & are unremarkable except as noted in Subjective Physical Exam Constitutional: WD/WN, vitals as above Eyes: PERRL, conjunctivae normal, anicteric sclerae ENMT: external ear and nose normal, oropharynx normal Neck: trachea midline, no thyromegaly Respiratory: normal respiratory effort, lungs clear to auscultation Cardiovascular: RRR, no murmur, no edema Gastrointestinal (Abdomen): Inspection/Auscultation: abdomen normal to inspection; abdomen not distended Percussion/Palpation: + abdomen tender (epigatrum), + guarding (epigastrum) and abdomen soft; no hernia Musculoskeletal: no cyanosis or clubbing, extremities motor strength 5/5 Skin: no rashes, warm and dry Neurologic: PERRL, EOMI, accommodation nl, no face palsy, no dysarthria Psychiatric: A+Ox3, euthymic affect Lymphatic: no inguinal lymphadenopathy Results & Data ([facility]) Vital Signs (Past 12 Hours) Vital Signs Temp Pulse Resp BP Pulse Ox 07/16/20 07:03 36.7 C 67 16 122/78 93 07/15/20 23:44 36.6 C 62 14 100/60 95 PG Care Time/CCT Total # of Minutes Spent Total Time Spent with Patient: Total time spent is greater than 50% in coordination of care (as documented) at patient's floor/unit and/or counseling patient: Coding Level of Care Code 86119 Subseq Hosp Care Lvl 1 Diagnoses Pancreatitis K85.90
--- NOTE | 2020-07-16 12:23 | Hospitalist Progress Note ---
Date of Service July 16, 2020 Assessment & Plan (1) Pancreatitis: acute pancreatitis ; admitted with epigastric pain , nauseas with elevated lipase level > 1000 no hx of alcohol abuse appreciate input from GI and surgery MRCP shows no evidence of choledocholithiasis normal LFT , no gall bladder disease no evidence of infection , no fever or chills, normal white count appreciate input from surgery -cholecystectomy is not indicated in this setting pt clinically improved with bowel rest , IV fluids lipase level normalized today , tolerating clears , willing to advance diet to full liquid lipid panel shows : well controlled cholesterol and triglyceride Type 2 DM : insulin Sliding scale Drop in H&H : possible due to Aggressive IV hydration ( dilutional ) IV will be d/rodriguez today as lipase level normalized no evidence of GI bleed repeat H&H in am DISPOSITION ; slowly advance diet plan to discharge home possible tomorrow if able to tolerate solid diet will need clinic follow up with GI for further investigation of ( EUS/EGD ) for pancreatitis Admission and Anticipated Discharge Date Admission Date: July 15, 2020 Subjective follow up visit for acute pancreatitis : pt reports feeling a bit better than yesterday /still have epigastric pain 4- 5/10 no diarrhea or loose stool , no vomiting nausea has resolved still does not have much appetite , does not feel hungry has been tolerating clears so far , worried about her blood sugar-as there are not much options in Clear diet except for Jello/posicles willing to try full liquid diet no fever , or chest pain , no cough or SOB Review of Systems Review of Systems: All systems reviewed & are unremarkable except as noted in Subjective Physical Exam Constitutional: WD/WN, vitals as above Eyes: PERRL, conjunctivae normal, anicteric sclerae ENMT: external ear and nose normal, oropharynx normal Neck: trachea midline, no thyromegaly Respiratory: normal respiratory effort, lungs clear to auscultation Cardiovascular: RRR, no murmur, no edema Gastrointestinal (Abdomen): Percussion/Palpation: + abdomen tender (epigastric tenderness ) and abdomen soft Musculoskeletal: no cyanosis or clubbing, extremities motor strength 5/5 Skin: no rashes, warm and dry Neurologic: PERRL, EOMI, accommodation nl, no face palsy, no dysarthria Psychiatric: A+Ox3, euthymic affect Results & Data Results & Data ([facility]) Vital Signs (Past 12 Hours) Vital Signs Temp Pulse Resp BP Pulse Ox 07/16/20 07:03 36.7 C 67 16 122/78 93 (1) Pancreatitis Chronicity: acute Pancreatitis type: unspecified pancreatitis type Acute pancreatitis complication: unspecified Qualified Code(s): K85.90 - Acute pancreatitis without necrosis or infection, unspecified
[2020-07-16] MEDS: lisinopril 2.5 MG TAB PO SCH (21:12)
[2020-07-17 05:59] LABS: Hematocrit (blood only) 32.8 % (37-47); Hemoglobin 11.4 g/dL (12.0-16.0)
[2020-07-17 07:17] LABS: Estimated Average Glucose 157 mg/dl; Hemoglobin A1C 7.1 % (4.5-5.6)
--- NOTE | 2020-07-17 08:03 | Gastroenterology Progress Note ---
Date of Service July 17, 2020 Assessment & Plan (1) Pancreatitis: 69 y/o female admitted with abd pain, elevated lipase > 1000, and imaging c/w acute uncomplicated pancreatitis. MRCP obtained noting edema involving the pancreatic head and proximal duodenum, consistent with acute pancreatitis, vs duodenitis, with CBD normal in course and caliber; no cholelithiasis or choledocholithiasis. Etiology of pancreatitis unclear; she does not drink alcohol, triglycerides were WNL 02/2020, no personal or family history of recurrent pancreatitis/pancreatic cancer. However, she is on several outpatient medications which have had an association with pancreatitis, including Januvia, simvastatin and lisinopril. It would be difficult to pinpoint exactly which medication may be involved, however hospitalist is changing her diabetic medication. With supportive care including IV, her symptoms are resolved today and she is tolerating a regular diet. - Would recommend continuing diet as tolerated; recommend low-fat diet - Recommend continuing to avoid alcohol -In view of her symptoms and appearance of the pancreas and duodenum on imaging, she may benefit from outpatient EUS for further evaluation and she is agreeable to considering that. - Admission and Anticipated Discharge Date Admission Date: July 15, 2020 Supervising Physician Co-Signing Physician Notes Attending attestation I have seen, examined this patient, and agree with the findings and above by our mid-level provider Tammy So, with the following additions Doing well without issues, uncomplicated pancreatitis without definitive etiology Outpt EUS in 4-6 wks to exclude pancreatic abnormality suggesting etiology Ok to D/C given that has tolerated multiple solid food meals without issues May need to see Endocrinology Subjective Patient seen and examined, chart reviewed. Today, feeling much better. Her abdominal pain is resolved. She has had no nausea vomiting, fevers or chills. Tolerated roast beef for dinner last night and full breakfast this morning. Review of Systems Constitutional: as per Subjective / HPI Denies weight loss, jaundice Eyes: No icterus Respiratory: no cough and no dyspnea Cardiovascular: no chest pain and no edema Gastrointestinal: as per Subjective / HPI Physical Exam Constitutional: WD/WN, vitals as above Eyes: + anicteric sclerae Respiratory: normal respiratory effort, lungs clear to auscultation Cardiovascular: RRR, no murmur, no edema Gastrointestinal (Abdomen): normal bowel sounds, soft, nontender, no hepatosplenomegaly Skin: no rashes, warm and dry Psychiatric: A+Ox3, euthymic affect Results & Data ([facility]) Vital Signs (Past 12 Hours) Vital Signs Temp Pulse Resp BP Pulse Ox 07/17/20 07:10 37.2 C 71 16 123/67 95 07/16/20 22:23 37.0 C 61 14 111/67 95 Laboratory Results 07/17/20 07/17/20 07/16/20 Range/Units 08:12 05:37 20:47 Hgb 11.4 L (12.0-16.0) g/dL Hct 32.8 L (37-47) % POC Glucose 116 H 130 H (70-99) mg/dl Estimat Average Glucose mg/dl Hemoglobin A1c (4.5-5.6) % 07/16/20 07/16/20 07/16/20 Range/Units 17:12 12:18 05:17 Hgb (12.0-16.0) g/dL Hct (37-47) % POC Glucose 89 110 H (70-99) mg/dl Estimat Average Glucose 157 mg/dl Hemoglobin A1c 7.1 H (4.5-5.6) % (1) Pancreatitis Acute pancreatitis complication: unspecified Chronicity: acute Pancreatitis type: unspecified pancreatitis type Qualified Code(s): K85.90 - Acute pancreatitis without necrosis or infection, unspecified
[2020-07-17] MEDS: PANTOprazole 40 MG TAB PO SCH (08:24)
[2020-07-17] MEDS: INSULIN ASPART 100 UNITS/ML 3 ML PEN SC SCH ×2 (08:27→12:45)
[2020-07-17] MEDS ORDERED: glipiZIDE ER 2.5 MG TABCR PO ONE (13:33)
--- NOTE | 2020-07-17 13:37 | Communication Note ---
Date of Service: July 17, 2020 pt will be discharged home today home antidiabetic med Herson-Met ( 100/1000 ) mg D/rodriguez due to concern for acute pancreatitis . d/w Diabetic pharmacy pt can be started on Glipizide 5 mg daily hospital follow up will be scheduled with her family physician in a week Laura Kaba MD
--- NOTE | 2020-07-17 14:43 | Discharge Summary ---
Date of Service July 17, 2020 Admission HPI Per Admitting Provider DICTATED BY: Kingsley Hernandez MD DATE OF ADMISSION: 07/15/2020 CHIEF COMPLAINT: Abdominal pain. HISTORY OF PRESENT ILLNESS: A 69-year-old male with past medical history significant for type 2 diabetes, hyperlipidemia, hypertension, vitamin D deficiency, trigeminal neuralgia, generalized anxiety disorder, presents with abdominal pain. The patient says since last Friday, she was having abdominal pain in the epigastric region radiating to lower abdomen and back, severe in nature, associated with nausea and on Friday she went to [facility] and CAT scan was done and she was told has chronic cholecystitis and to follow with the surgeon and to be on low-fat diet. She got an appointment on coming Friday at the [facility], and eating just jello, but the pain was not getting better, it got worse, which prompted her to come to the ER today and here lipase is elevated, so admitting for pancreatitis. Denies any fever, chills, no diarrhea or constipation. Normal bladder movements. Has chronic headaches. No blurred vision, no earache, no runny nose, no sore throat, no cough, no dysphagia, no chest pain or shortness of breath. No rash. Otherwise, ambulates and climbs steps okay. Principal Diagnosis DICTATED BY: Kingsley Hernandez MD DATE OF ADMISSION: 07/15/2020 CHIEF COMPLAINT: Abdominal pain. HISTORY OF PRESENT ILLNESS: A 69-year-old male with past medical history significant for type 2 diabetes, hyperlipidemia, hypertension, vitamin D deficiency, trigeminal neuralgia, generalized anxiety disorder, presents with abdominal pain. The patient says since last Friday, she was having abdominal pain in the epigastric region radiating to lower abdomen and back, severe in nature, associated with nausea and on Friday she went to [facility] and CAT scan was done and she was told has chronic cholecystitis and to follow with the surgeon and to be on low-fat diet. She got an appointment on coming Friday at the [facility], and eating just jello, but the pain was not getting better, it got worse, which prompted her to come to the ER today and here lipase is elevated, so admitting for pancreatitis. Denies any fever, chills, no diarrhea or constipation. Normal bladder movements. Has chronic headaches. No blurred vision, no earache, no runny nose, no sore throat, no cough, no dysphagia, no chest pain or shortness of breath. No rash. Otherwise, ambulates and climbs steps okay. Discharge Exam Constitutional WD/WN, vitals as above Eyes PERRL, conjunctivae normal, anicteric sclerae ENMT external ear and nose normal, oropharynx normal Neck trachea midline, no thyromegaly Respiratory normal respiratory effort, lungs clear to auscultation Cardiovascular RRR, no murmur, no edema Gastrointestinal (Abdomen) Percussion/Palpation: + abdomen tender (epigastric tenderness ) and abdomen soft Musculoskeletal no cyanosis or clubbing, extremities motor strength 5/5 Skin no rashes, warm and dry Neurologic PERRL, EOMI, accommodation nl, no face palsy, no dysarthria Psychiatric A+Ox3, euthymic affect Discharge Data Allergies Allergy/AdvReac Type Severity Reaction Status Date / Time sitagliptin [From ] AdvReac Severe pancreatiti Verified 07/16/20 15:13 s Consultations 07/15/20 05:41 ED Decision to Admit Stat 07/15/20 08:40 Consult Gastroenterology Routine Consult General Surgery Routine Ordered Studies 07/15/20 03:18 US gallbladder Urgent 07/15/20 12:05 MR MRCP Routine Hospital Course (1) Pancreatitis: acute pancreatitis ; admitted with epigastric pain , nauseas with elevated lipase level > 1000 no hx of alcohol abuse appreciate input from GI and surgery MRCP shows no evidence of choledocholithiasis normal LFT , no gall bladder disease no evidence of infection , no fever or chills, normal white count appreciate input from surgery -cholecystectomy is not indicated in this setting pt clinically improved with bowel rest , IV fluids lipase level normalized tolerating solid diet appreciate input from GI stable to be discharged home , clinic follow up in 4-6 weeks for EGD /EUS lipid panel shows : well controlled cholesterol and triglyceride Type 2 DM : insulin Sliding scale was on Januvia /Metformin combination ( Janumet) -d/rodriguez for concern of adverse drug reaction ( Januvia -acute pancreatitis ) HbA1c 7 pt is discharged on PO Glipizide 5 mg daily will be followed with family physician on discharge Drop in H&H : Dilutional no evidence of GI bleed repeat H&H in am -stable DISPOSITION ; discharge home today will need clinic follow up with GI for further investigation of ( EUS/EGD ) for pancreatitis plan of care D/w patient , all questions answered Total Time Total Time Spent Total Time Spent (In Minutes): approx 35 mi ns Total Time Includes: Examination of the Patient, Discharge Planning and Medication Reconciliation Discharge Plan Discharge Items Patient Disposition: Home - Self-Care Reason For Visit: ABDOMINAL PAIN Discharge Diagnosis: Acute Pancreatitis Activity: Resume your previous activity Non-emergency contact: Primary Care Provider Call non-emergency contact if: you have any medication questions Follow-up/Referrals: Quintin Murphy CRNP [Nurse Practitioner] - Sri Morse DO [Primary Care Provider] - (Date & Time 07/20/2020 11:00 AM Provider Sri Morse DO Department [facility], [place] ) Diet: Low Fat Diet Comment: low fat diet till evaluated by GI Addtl Attending Provider Instructions: Please take all medications as instructed on discharge list below. It is recommended that you follow-up with your primary care physician within 1-2 weeks of hospital discharge to ensure you are still doing well. Please call if you have any questions or problems. You can reach a [facility] hospitalist on duty at [facility] 24 hours a day by calling [phone] Gastroenterology follow up in 4-6 weeks for out patient EGD and EUS ( endoscopic ultrasound ) Addtl [employer] Provider Instructions: DO NOT TAKE JANUMET XR ( JANUVIA /METFORMIN ) INCREASED RISK FOR RECURRENT PANCREATICS ASSOCIATED WITH JANUVIA You are started on a new Antidiabetic med Glipizide XL 5 mg take 1 tablet daily , new prescription sent to your pharmacy Pending Studies at Discharge: No Stand-Alone Forms: My [facility], Smoking Cessation Medications and DC Order Prescriptions: New glipizide 5 mg tablet extended release 24hr 5 mg PO DAILY Qty: 30 RF: 0 Continued lorazepam [Ativan] 1 mg tablet 1 mg PO Q12 PRN (Reason: Anxiety) RF: 0 simvastatin 10 mg Tablet 10 mg PO HS RF: 0 lisinopril 2.5 mg Tablet 2.5 mg PO QPM RF: 0 Discontinued Janumet XR 100-1,000 mg tablet, ER multiphase 24 hr 1 tab PO DAILY RF: 0 Discharge Orders: Discharge Order (Routine); Ordered 07/17/20 Ordered By: Laura Toth/Other Patient Handouts: Low-Fat Cooking Tips, Managing Type 2 Diabetes, Understanding Pancreatitis, Managing Diabetes: The A1C Test Admission Data Admit Date/Time: 07/15/20 06:23 Attending Provider: Laura Kaba Admit Provider: Kingsley Hernandez Primary Care Provider: Sri Morse Other Providers: Kingsley Hernandez ; Quintin Murphy ; Maddy King ; Rita Henry ; Whitley Gipson ; Thompson Askew ; Noni Bautista ; Priscilla Rosario ; Jesus Rivera ; Terrell Rosas ; Mirna Wilson ; Briana Benavides ; Silvina Stein ; Evelyn Pérez ; Viki Tinajero ; Joshua Way ; Shell Claudio ; Sheron Bautista ; Jeramie Crabtree ; Zeeshan Hurley ; Blaire Covarrubias ; Maddy Knight ; Heath Alexander Jr ; María Vallejo ; Bryan Díaz ; Evelyn Penaloza Other Interventions: Discharge Summary Assessment (RN) Last Done: 07/17/20 13:58
== END 2020-07-17 15:32 | disposition home or self-care (01) ==
LOC: ED 02:17 → INTOOBSV 06:23 → 3N 06:23

== ENCOUNTER 2024-07-30 12:26 | Observation (INO) ==
[2024-07-30 13:17] LABS: Appearance Urine Clear (Clear); Bilirubin Urine Negative (Negative); Blood Urine Negative (Negative); Color Urine Yellow; Glucose Urine UA 3+ (Negative); Ketones Urine 1+ (Negative); Leukocyte Esterase Urine Negative (Negative); Nitrite Urine Negative (Negative); Protein Urine Negative (Negative); Specific Gravity Urine 1.026 (1.000-1.030); Urobilinogen Urine Negative (Negative)
[2024-07-30 13:19] LABS: Basophils # (auto) 0.03 K/uL (0.00-0.20); Basophils % (auto) 0.4 %; Eosinophils # (auto) 0.02 K/uL (0.00-0.50); Eosinophils % (auto) 0.3 %; Hematocrit (blood only) 42.8 % (37.0-47.0); Hemoglobin 14.3 g/dl (12.0-16.0); Immature Granulocytes # (auto) 0.03 K/uL (0.01-0.20); Immature Granulocytes % (auto) 0.4 %; Lymphocytes # (auto) 1.11 K/uL (1.20-3.40); Lymphocytes % (auto) 16.1 %; Mean Corpuscular Hemoglobin 29.4 pg (25.0-34.0); Mean Corpuscular Hgb Conc 33.4 g/dL (32.0-36.0); Mean Corpuscular Volume 87.9 fL (80.0-100.0); Mean Platelet Volume 9.8 fL (9.4-12.4); Monocytes # (auto) 0.37 K/uL (0.11-0.59); Monocytes % (auto) 5.4 %; Neutrophils # (auto) 5.32 K/uL (1.40-6.50); Neutrophils % (auto) 77.4 %; Platelet Count 376 K/uL (130-400); RDW Coefficient of Variation 14.2 % (11.5-14.5); RDW Standard Deviation 45.1 fL (36.4-46.3); Red Blood Count 4.87 M/uL (4.20-5.40); White Blood Count 6.88 K/ul (4.8-10.8)
[2024-07-30 13:38] LABS: Alanine Aminotransferase 10 U/L (7-52); Albumin Globulin Ratio 1.3 (0.9-2); Albumin Level 4.6 gm/dl (3.4-5.0); Alkaline Phosphatase 66 U/L (34-104); Anion Gap 7 (3-11); Aspartate Aminotransferase 14 U/L (13-39); BUN Creatinine Ratio 19.2 (10-20); Bilirubin,Total 0.3 mg/dl (0.2-1.0); Blood Urea Nitrogen 15 mg/dl (6-23); Calcium 9.8 mg/dl (8.6-10.3); Carbon Dioxide 28 mmol/L (21-32); Chloride 103 mmol/L (98-107); Globulin 3.5 gm/dl (2.5-4.0); Glucose 171 mg/dl (70-99(Fasting)); Potassium 4.1 mmol/L (3.5-5.1); Sodium 138 mmol/L (136-145); Total Protein 8.1 gm/dl (6.0-8.3)
--- NOTE | 2024-07-30 13:51 | XRay Report ---
XR chest 1V not portable HISTORY: 74 years-old Female dizzy COMPARISON: 08/17/2018 TECHNIQUE: PA view of the chest FINDINGS: Cardiomediastinal and hilar silhouettes are within normal limits. Spondylitic spurring of the spine. Cholecystectomy. There is no pneumothorax, pleural effusion or pulmonary edema. IMPRESSION: No acute process. ACT 112: Negative or not required by law. The above report was generated using voice recognition software. It may contain grammatical, syntax o r spelling errors. Electronically signed by: Rishabh Mohr M.D. 07/30/2024 1:50 PM
--- NOTE | 2024-07-30 15:29 | Electrocardiogram Report ---
Test Reason : Blood Pressure : */* mmHG Vent. Rate : 86 BPM Atrial Rate : 86 BPM P-R Int : 170 ms QRS Dur : 62 ms QT Int : 366 ms P-R-T Axes : 59 -1 53 degrees QTcB Int : 437 ms Normal sinus rhythm Left atrial enlargement Low voltage QRS Borderline ECG When compared with ECG of 29-Jul-2024 17:31, No significant change was found Confirmed by Ryne Cesar ([id number]) on 07/30/2024 3:29:42 PM Referred By: Confirmed By: Ryne Cesar
[2024-07-30] MEDS: ONDANSETRON INJ 2 MG/ML 2 ML VIAL IV STA (16:22)
[2024-07-30] MEDS: diazePAM 5 MG/ML 10ML VIAL IV STA ×2 (16:22→19:08)
[2024-07-30] MEDS: MECLIZINE HCL 25 MG TAB PO STA (16:22)
--- NOTE | 2024-07-30 19:09 | Emergency Department Note ---
Impression & Plan Dizziness, Vertigo ED Provider Note NAME: CARMEN ARRIOLA AGE: 74 SEX: Female INFORMANT: Patient and ED PROVIDER(S): Rober Pablo MD CHIEF COMPLAINT: Dizziness PLAN: Disposition: Discharge Outpatient prescription management: Zofran, meclizine, Ativan Referral: PCP follow-up for reassessment and consideration for audiology referral MEDICAL DECISION MAKING: Patient presented back because of continued dizziness. She had taken 1 dose of meclizine. She had some nausea. IV was established. Patient was treated with Zofran, oral meclizine and 1 dose of IV Valium. Blood work was unremarkable. Chest x-ray was negative. ECG did not show any acute ischemic change. Patient had negative CT angiography and MR imaging yesterday. I did review those reports and no acute findings were noted. On reassessment the patient was feeling better. She was not exhibiting any orthostatic hypotension. She did have mild change with elevation of her heart rate. Patient was able to ambulate to the bathroom. She noted feeling much better but still had some mild dizziness with head movement. If she does not move her head she has no symptoms. When the dizziness comes that does bring on some nausea. I did give her a second dose of IV Valium and monitored her. Patient had ambulatory trial and unfortunately was still symptomatic to the point where she was off balance. At this point I do not think she safe going home and the patient feels the same. Consultation was made with Dr. Ross Najera, [facility] hospitalist service. Case discussed diagnostics were reviewed. History reviewed as well. Patient was evaluated in the ER and admitted for further management. Care/management discussed with: manager laundry, hospitalist Level of care consideration(s): After review of the information above and other included data, I feel the patient c requires escalation of care to admission. Triage Nursing notes: reviewed and agree them. Vital Signs: reviewed and remarkable for no significant abnormalities Additional History obtained from: none Chronic Medical/Social Conditions affecting care: Diabetes Prior/ Outside/ External records reviewed: none Differential Diagnosis: Benign positional vertigo, dehydration, hypovolemia, anemia, tumor, infection, hypoglycemia, electrolyte abnormalities, cardiac sources, intracerebral event, toxicologic, neurologic, as well as other pathologies. Diagnostics, independently interpreted by me: ECG: Twelve-lead ECG was normal sinus rhythm at 86 bpm. Left atrial enlargement. No ST elevation. No T wave inversion. Cardiac Monitoring: Cardiac monitoring ordered by me: The patient was placed on continuous cardiac monitoring and observed. It revealed a normal sinus rhythm at 82 beats per minute without ectopy or evidence of dysrhythmia. Medical decision rules: none Imaging studies: Chest x-ray. Findings: A chest x-ray was performed and revealed no pneumothorax, effusion, infiltrate, pulmonary edema, free air under the diaphragm, or wide mediastinum. Impression: No acute disease. HPI: 74 year old Female arrives for evaluation of dizziness. This started yesterday morning and is persisting. The patient also notes the following associated symptoms, nausea. The patient has taken 1 dose of meclizine today for relieving factors. Current pain is rated as 0/10. Patient states symptoms started when she got up out of bed yesterday. Denied any trauma. Patient was seen in the ED yesterday and treated with meclizine. She was also given Ativan to facilitate imaging. Patient was discharged on meclizine. Pt denies LOC, headache, fevers, chills, diaphoresis, visual changes, neck pain, chest pain, breathing difficulties, vomiting, abdominal pain, back pain, melena, hematochezia, urinary symptoms, numbness, weakness, lymphadenopathy, rash, or other complaints. PAST MEDICAL HISTORY: See Below, diabetes PAST SURGICAL HISTORY: See Below, SOCIAL HISTORY: See Below, HOME MEDICATIONS: See Below ALLERGIES: See Below VITALS: See Below PHYSICAL EXAMINATION: GENERAL: Awake, alert, mildly uncomfortable-appearing, in no distress HENT: Normocephalic, atraumatic. Oropharynx unremarkable. EYES: Normal conjunctiva. Sclera non-icteric. PERRLA. EOMI. Mild lateral nystagmus. No vertical or rotatory nystagmus. NECK: Inspection normal. Non-tender. Supple. No nuchal rigidity. FROM. No masses. RESPIRATORY: Clear to auscultation. No wheezes. No rales. Normal respiratory effort. CARDIAC: Normal rate. Normal rhythm. No murmurs. No rubs. Extremities warm and well perfused. Pulses equal. No JVD. GI: Soft, non-distended. No tenderness to palpation. No rebound or guarding. No masses. RECTAL: Deferred. MUSCULOSKELETAL: Atraumatic. Chest examination reveals no tenderness. The back is symmetrical on inspection without obvious abnormality. There is no CVA tenderness to palpation. No joint edema. LOWER EXTREMITIES: Calves are equal size bilaterally and non-tender. No edema. No discoloration. NEURO: Normal sensorium. No sensory or motor deficits noted. Speech normal. No drift. Normal rapid alternating movements. Normal [id number]. SKIN: No rash or jaundice noted. PROCEDURES: none CRITICAL CARE: none OBSERVATION NOTE: none Past Med/Surg History Problem List Dizziness (Acute) Vertigo (Acute) Cholelithiasis Diabetes Encounter for pre-operative examination Midepigastric pain (Acute) Pancreatitis (Acute) 06/2020 Headache, paroxysmal hemicrania, chronic Idiopathic headaches, possible trigeminal neuralgia > being treated/monitored by PCP Temporal arteritis Biopsy negative 2018 Anxiety Uterine cancer ~1987 History of hysterectomy TIMOTHY History of section x2 Diabetes mellitus, type 2 NIDDM History of colonoscopy Medical History Anxiety Diabetes mellitus, type 2 NIDDM Headache, paroxysmal hemicrania, chronic Idiopathic headaches, possible trigeminal neuralgia > being treated/monitored by PCP Hyperlipidemia Pancreatitis 06/2020 Temporal arteritis Biopsy negative 2018 Trigeminal neuralgia of right side of face Idiopathic headaches, possible trigeminal neuralgia > being treated/monitored by PCP Uterine cancer ~1987 Surgical History History of section x2 History of colonoscopy History of esophagogastroduodenoscopy (EGD) History of hysterectomy TIMOTHY History of temporal artery biopsy Family History Father Diabetes Grandmother (Maternal) Diabetes Grandmother (Paternal) Diabetes Other Family history non-contributory Social History Smoking Status: Never smoker Tobacco Type: Cigarettes Second Hand Exposure: No; Do You Dip or Chew Tobacco: No; Hx Alcohol Use: Yes Alcohol type: wine Hx Substance Use: No Preferred Language: Macanese Communication Ability: Effective Environmental Conservation Professor Required: No Beliefs That Will Affect Care: None Current Living Situation: Spouse Feels Safe at Home: Yes Assistive Devices: Glasses Allergies Allergies Allergy/AdvReac Type Severity Reaction Status Date / Time sitagliptin [From ] AdvReac Severe Pancreatiti Verified 07/30/24 17:27 s Home Meds Home Medications Medication Instructions Recorded Confirmed simvastatin 10 mg tablet 10 mg PO HS 08/17/18 07/30/24 Compound Hrt 1 cap PO BID 02/23/21 07/30/24 lorazepam 0.5 mg tablet 0.5 mg PO DAILY PRN Anxiety 02/23/21 07/30/24 aspirin 81 mg tablet,delayed 81 mg PO DAILY 07/30/24 07/30/24 release ciclopirox 8 % topical solution 1 applic topical DAILY 07/30/24 07/30/24 empagliflozin 25 mg tablet 25 mg PO DAILY 07/30/24 07/30/24 (Jardiance) lamotrigine 25 mg tablet 0 mg PO BID 07/30/24 07/30/24 prasterone (dhea) 25 mg capsule 25 mg PO BID 07/30/24 07/30/24 tirzepatide 2.5 mg/0.5 mL 2.5 mg subcut WK 07/30/24 07/30/24 subcutaneous pen injector (Jerome) Previous Rx's Medication Instructions Recorded meclizine 25 mg tablet 25 mg PO TID PRN dizziness #30 tabs 07/29/24 Results & Data (ED) Vital Signs Vital Signs - 24 hr 07/30/24 12:41 07/30/24 15:15 07/30/24 16:24 Temperature 36.1 C L Temperature Source Temporal Artery Scan Pulse Rate - Lying 82 Pulse Rate - Sitting 82 Pulse Rate - Standing 114 H Pulse Rate 89 Pulse Rate [Apical] 107 H Pulse Rate from SpO2 Sensor Respiratory Rate 18 19 Respiratory Effort / Characteristics Non-Labored Respiratory Depth Normal Respiratory Pattern Regular Blood Pressure - Lying 127/79 Blood Pressure - Sitting 132/78 Blood Pressure- Standing 132/79 Blood Pressure 120/72 Blood Pressure [Right Arm] 132/88 Blood Pressure Mean 88 Blood Pressure Mean [Right Arm] 102 Pulse Oximetry 95 94 Oxygen Delivery Method Room Air Room Air Sepsis Recent Fever Within 48 Hours No Sepsis New/Unexplained Change in Mental Status N/A Sepsis Action Taken by Nursing No Action Required 07/30/24 16:43 07/30/24 17:00 07/30/24 17:27 Temperature Temperature Source Pulse Rate - Lying Pulse Rate - Sitting Pulse Rate - Standing Pulse Rate 90 101 H Pulse Rate [Apical] 82 Pulse Rate from SpO2 Sensor 100 H Respiratory Rate 18 20 Respiratory Effort / Characteristics Respiratory Depth Respiratory Pattern Blood Pressure - Lying Blood Pressure - Sitting Blood Pressure- Standing Blood Pressure 114/66 Blood Pressure [Right Arm] 114/66 Blood Pressure Mean 82 Blood Pressure Mean [Right Arm] 82 Pulse Oximetry 92 91 Oxygen Delivery Method Sepsis Recent Fever Within 48 Hours Sepsis New/Unexplained Change in Mental Status Sepsis Action Taken by Nursing 07/30/24 17:30 07/30/24 17:30 07/30/24 17:30 Temperature Temperature Source Pulse Rate - Lying Pulse Rate - Sitting Pulse Rate - Standing Pulse Rate Pulse Rate [Apical] Pulse Rate from SpO2 Sensor Respiratory Rate Respiratory Effort / Characteristics Respiratory Depth Respiratory Pattern Blood Pressure - Lying Blood Pressure - Sitting Blood Pressure- Standing Blood Pressure 127/68 127/68 127/68 Blood Pressure [Right Arm] Blood Pressure Mean 73 73 73 Blood Pressure Mean [Right Arm] Pulse Oximetry Oxygen Delivery Method Sepsis Recent Fever Within 48 Hours Sepsis New/Unexplained Change in Mental Status Sepsis Action Taken by Nursing 07/30/24 17:30 07/30/24 17:30 07/30/24 17:30 Temperature Temperature Source Pulse Rate - Lying Pulse Rate - Sitting Pulse Rate - Standing Pulse Rate Pulse Rate [Apical] Pulse Rate from SpO2 Sensor Respiratory Rate Respiratory Effort / Characteristics Respiratory Depth Respiratory Pattern Blood Pressure - Lying Blood Pressure - Sitting Blood Pressure- Standing Blood Pressure 127/68 127/68 127/68 Blood Pressure [Right Arm] Blood Pressure Mean 73 73 73 Blood Pressure Mean [Right Arm] Pulse Oximetry Oxygen Delivery Method Sepsis Recent Fever Within 48 Hours Sepsis New/Unexplained Change in Mental Status Sepsis Action Taken by Nursing 07/30/24 17:30 07/30/24 17:30 07/30/24 17:30 Temperature Temperature Source Pulse Rate - Lying Pulse Rate - Sitting Pulse Rate - Standing Pulse Rate Pulse Rate [Apical] Pulse Rate from SpO2 Sensor Respiratory Rate Respiratory Effort / Characteristics Respiratory Depth Respiratory Pattern Blood Pressure - Lying Blood Pressure - Sitting Blood Pressure- Standing Blood Pressure 127/68 127/68 127/68 Blood Pressure [Right Arm] Blood Pressure Mean 73 73 73 Blood Pressure Mean [Right Arm] Pulse Oximetry Oxygen Delivery Method Sepsis Recent Fever Within 48 Hours Sepsis New/Unexplained Change in Mental Status Sepsis Action Taken by Nursing 07/30/24 17:30 07/30/24 17:30 07/30/24 17:33 Temperature Temperature Source Pulse Rate - Lying Pulse Rate - Sitting Pulse Rate - Standing Pulse Rate 86 Pulse Rate [Apical] Pulse Rate from SpO2 Sensor 86 Respiratory Rate 17 Respiratory Effort / Characteristics Respiratory Depth Respiratory Pattern Blood Pressure - Lying Blood Pressure - Sitting Blood Pressure- Standing Blood Pressure 127/68 127/68 Blood Pressure [Right Arm] Blood Pressure Mean 73 73 Blood Pressure Mean [Right Arm] Pulse Oximetry 92 Oxygen Delivery Method Sepsis Recent Fever Within 48 Hours Sepsis New/Unexplained Change in Mental Status Sepsis Action Taken by Nursing 07/30/24 17:54 07/30/24 18:00 07/30/24 18:00 Temperature Temperature Source Pulse Rate - Lying Pulse Rate - Sitting Pulse Rate - Standing Pulse Rate 85 Pulse Rate [Apical] Pulse Rate from SpO2 Sensor 86 Respiratory Rate 16 Respiratory Effort / Characteristics Respiratory Depth Respiratory Pattern Blood Pressure - Lying Blood Pressure - Sitting Blood Pressure- Standing Blood Pressure 115/66 115/66 Blood Pressure [Right Arm] Blood Pressure Mean 79 79 Blood Pressure Mean [Right Arm] Pulse Oximetry 91 Oxygen Delivery Method Sepsis Recent Fever Within 48 Hours Sepsis New/Unexplained Change in Mental Status Sepsis Action Taken by Nursing 07/30/24 18:00 07/30/24 18:00 07/30/24 18:00 Temperature Temperature Source Pulse Rate - Lying Pulse Rate - Sitting Pulse Rate - Standing Pulse Rate Pulse Rate [Apical] Pulse Rate from SpO2 Sensor Respiratory Rate Respiratory Effort / Characteristics Respiratory Depth Respiratory Pattern Blood Pressure - Lying Blood Pressure - Sitting Blood Pressure- Standing Blood Pressure 115/66 115/66 115/66 Blood Pressure [Right Arm] Blood Pressure Mean 79 79 79 Blood Pressure Mean [Right Arm] Pulse Oximetry Oxygen Delivery Method Sepsis Recent Fever Within 48 Hours Sepsis New/Unexplained Change in Mental Status Sepsis Action Taken by Nursing 07/30/24 18:00 07/30/24 18:00 07/30/24 18:00 Temperature Temperature Source Pulse Rate - Lying Pulse Rate - Sitting Pulse Rate - Standing Pulse Rate Pulse Rate [Apical] Pulse Rate from SpO2 Sensor Respiratory Rate Respiratory Effort / Characteristics Respiratory Depth Respiratory Pattern Blood Pressure - Lying Blood Pressure - Sitting Blood Pressure- Standing Blood Pressure 115/66 115/66 115/66 Blood Pressure [Right Arm] Blood Pressure Mean 79 79 79 Blood Pressure Mean [Right Arm] Pulse Oximetry Oxygen Delivery Method Sepsis Recent Fever Within 48 Hours Sepsis New/Unexplained Change in Mental Status Sepsis Action Taken by Nursing 07/30/24 18:00 07/30/24 18:00 07/30/24 18:12 Temperature Temperature Source Pulse Rate - Lying Pulse Rate - Sitting Pulse Rate - Standing Pulse Rate 92 H Pulse Rate [Apical] Pulse Rate from SpO2 Sensor 92 H Respiratory Rate 19 Respiratory Effort / Characteristics Respiratory Depth Respiratory Pattern Blood Pressure - Lying Blood Pressure - Sitting Blood Pressure- Standing Blood Pressure 115/66 115/66 Blood Pressure [Right Arm] Blood Pressure Mean 79 79 Blood Pressure Mean [Right Arm] Pulse Oximetry 92 Oxygen Delivery Method Sepsis Recent Fever Within 48 Hours Sepsis New/Unexplained Change in Mental Status Sepsis Action Taken by Nursing 07/30/24 18:30 07/30/24 18:30 07/30/24 18:30 Temperature Temperature Source Pulse Rate - Lying Pulse Rate - Sitting Pulse Rate - Standing Pulse Rate Pulse Rate [Apical] Pulse Rate from SpO2 Sensor Respiratory Rate Respiratory Effort / Characteristics Respiratory Depth Respiratory Pattern Blood Pressure - Lying Blood Pressure - Sitting Blood Pressure- Standing Blood Pressure 139/68 139/68 139/68 Blood Pressure [Right Arm] Blood Pressure Mean 82 82 82 Blood Pressure Mean [Right Arm] Pulse Oximetry Oxygen Delivery Method Sepsis Recent Fever Within 48 Hours Sepsis New/Unexplained Change in Mental Status Sepsis Action Taken by Nursing 07/30/24 18:30 07/30/24 18:30 07/30/24 18:30 Temperature Temperature Source Pulse Rate - Lying Pulse Rate - Sitting Pulse Rate - Standing Pulse Rate Pulse Rate [Apical] Pulse Rate from SpO2 Sensor Respiratory Rate Respiratory Effort / Characteristics Respiratory Depth Respiratory Pattern Blood Pressure - Lying Blood Pressure - Sitting Blood Pressure- Standing Blood Pressure 139/68 139/68 139/68 Blood Pressure [Right Arm] Blood Pressure Mean 82 82 82 Blood Pressure Mean [Right Arm] Pulse Oximetry Oxygen Delivery Method Sepsis Recent Fever Within 48 Hours Sepsis New/Unexplained Change in Mental Status Sepsis Action Taken by Nursing 07/30/24 18:30 07/30/24 18:30 07/30/24 18:30 Temperature Temperature Source Pulse Rate - Lying Pulse Rate - Sitting Pulse Rate - Standing Pulse Rate Pulse Rate [Apical] Pulse Rate from SpO2 Sensor Respiratory Rate Respiratory Effort / Characteristics Respiratory Depth Respiratory Pattern Blood Pressure - Lying Blood Pressure - Sitting Blood Pressure- Standing Blood Pressure 139/68 139/68 139/68 Blood Pressure [Right Arm] Blood Pressure Mean 82 82 82 Blood Pressure Mean [Right Arm] Pulse Oximetry Oxygen Delivery Method Sepsis Recent Fever Within 48 Hours Sepsis New/Unexplained Change in Mental Status Sepsis Action Taken by Nursing 07/30/24 18:30 07/30/24 18:36 07/30/24 19:00 Temperature Temperature Source Pulse Rate - Lying Pulse Rate - Sitting Pulse Rate - Standing Pulse Rate 88 Pulse Rate [Apical] 103 H Pulse Rate from SpO2 Sensor 89 Respiratory Rate 18 20 Respiratory Effort / Characteristics Non-Labored Spontaneous Respiratory Depth Normal Respiratory Pattern Blood Pressure - Lying Blood Pressure - Sitting Blood Pressure- Standing Blood Pressure 139/68 Blood Pressure [Right Arm] 130/75 Blood Pressure Mean 82 Blood Pressure Mean [Right Arm] 93 Pulse Oximetry 93 98 Oxygen Delivery Method Room Air Sepsis Recent Fever Within 48 Hours Sepsis New/Unexplained Change in Mental Status Sepsis Action Taken by Nursing 07/30/24 19:00 07/30/24 19:00 07/30/24 19:00 Temperature Temperature Source Pulse Rate - Lying Pulse Rate - Sitting Pulse Rate - Standing Pulse Rate 86 Pulse Rate [Apical] Pulse Rate from SpO2 Sensor 87 Respiratory Rate 18 Respiratory Effort / Characteristics Respiratory Depth Respiratory Pattern Blood Pressure - Lying Blood Pressure - Sitting Blood Pressure- Standing Blood Pressure 101/63 101/63 Blood Pressure [Right Arm] Blood Pressure Mean 91 91 Blood Pressure Mean [Right Arm] Pulse Oximetry 93 Oxygen Delivery Method Sepsis Recent Fever Within 48 Hours Sepsis New/Unexplained Change in Mental Status Sepsis Action Taken by Nursing 07/30/24 19:00 07/30/24 19:00 07/30/24 19:00 Temperature Temperature Source Pulse Rate - Lying Pulse Rate - Sitting Pulse Rate - Standing Pulse Rate Pulse Rate [Apical] Pulse Rate from SpO2 Sensor Respiratory Rate Respiratory Effort / Characteristics Respiratory Depth Respiratory Pattern Blood Pressure - Lying Blood Pressure - Sitting Blood Pressure- Standing Blood Pressure 101/63 101/63 101/63 Blood Pressure [Right Arm] Blood Pressure Mean 91 91 91 Blood Pressure Mean [Right Arm] Pulse Oximetry Oxygen Delivery Method Sepsis Recent Fever Within 48 Hours Sepsis New/Unexplained Change in Mental Status Sepsis Action Taken by Nursing 07/30/24 19:00 07/30/24 19:00 07/30/24 19:33 Temperature Temperature Source Pulse Rate - Lying Pulse Rate - Sitting Pulse Rate - Standing Pulse Rate Pulse Rate [Apical] Pulse Rate from SpO2 Sensor Respiratory Rate Respiratory Effort / Characteristics Respiratory Depth Respiratory Pattern Blood Pressure - Lying Blood Pressure - Sitting Blood Pressure- Standing Blood Pressure 101/63 101/63 130/75 Blood Pressure [Right Arm] Blood Pressure Mean 91 91 97 Blood Pressure Mean [Right Arm] Pulse Oximetry Oxygen Delivery Method Sepsis Recent Fever Within 48 Hours Sepsis New/Unexplained Change in Mental Status Sepsis Action Taken by Nursing 07/30/24 19:33 Temperature Temperature Source Pulse Rate - Lying Pulse Rate - Sitting Pulse Rate - Standing Pulse Rate 108 H Pulse Rate [Apical] Pulse Rate from SpO2 Sensor Respiratory Rate 20 Respiratory Effort / Characteristics Respiratory Depth Respiratory Pattern Blood Pressure - Lying Blood Pressure - Sitting Blood Pressure- Standing Blood Pressure Blood Pressure [Right Arm] Blood Pressure Mean Blood Pressure Mean [Right Arm] Pulse Oximetry 97 Oxygen Delivery Method Sepsis Recent Fever Within 48 Hours Sepsis New/Unexplained Change in Mental Status Sepsis Action Taken by Nursing Laboratory Data 07/30/24 12:55 07/30/24 12:55 Lab Results 07/30/24 07/30/24 07/30/24 Range/Units 12:49 12:55 16:11 WBC 6.88 (4.8-10.8) K/ul RBC 4.87 (4.20-5.40) M/uL Hgb 14.3 (12.0-16.0) g/dl Hct 42.8 (37.0-47.0) % MCV 87.9 (80.0-100.0) fL MCH 29.4 (25.0-34.0) pg MCHC 33.4 (32.0-36.0) g/dL RDW Std Deviation 45.1 (36.4-46.3) fL RDW Coeff of Kyle 14.2 (11.5-14.5) % Plt Count 376 (130-400) K/uL MPV 9.8 (9.4-12.4) fL Immature Gran % (Auto) 0.4 % Neut % (Auto) 77.4 % Lymph % (Auto) 16.1 % Otero % (Auto) 5.4 % Eos % (Auto) 0.3 % Baso % (Auto) 0.4 % Neut # (Auto) 5.32 (1.40-6.50) K/uL Lymph # (Auto) 1.11 L (1.20-3.40) K/uL Otero # (Auto) 0.37 (0.11-0.59) K/uL Eos # (Auto) 0.02 (0.00-0.50) K/uL Baso # (Auto) 0.03 (0.00-0.20) K/uL Immature Gran # (Auto) 0.03 (0.01-0.20) K/uL Sodium 138 (136-145) mmol/L Potassium 4.1 (3.5-5.1) mmol/L Chloride 103 (98-107) mmol/L Carbon Dioxide 28 (21-32) mmol/L Anion Gap 7 (3-11) BUN 15 (6-23) mg/dl Creatinine 0.78 (0.6-1.2) mg/dl Est Cr Clr Drug Dosing Not Reportable eGFR 80.15 BUN/Creatinine Ratio 19.2 (10-20) Glucose 171 H (70-99(Fasting)) mg/dl POC Glucose 89 (70-99) mg/dl Calcium 9.8 (8.6-10.3) mg/dl Total Bilirubin 0.3 (0.2-1.0) mg/dl AST 14 (13-39) U/L ALT 10 (7-52) U/L Alkaline Phosphatase 66 (34-104) U/L Total Protein 8.1 (6.0-8.3) gm/dl Albumin 4.6 (3.4-5.0) gm/dl Globulin 3.5 (2.5-4.0) gm/dl Albumin/Globulin Ratio 1.3 (0.9-2) Urine Color Yellow Urine Appearance Clear (Clear) Urine pH 8.0 H (4.5-7.5) Ur Specific Fitzgerald 1.026 (1.000-1.030) Urine Protein Negative (Negative) Urine Glucose (UA) 3+ H (Negative) Urine Ketones 1+ H (Negative) Urine Blood Negative (Negative) Urine Nitrite Negative (Negative) Urine Bilirubin Negative (Negative) Urine Urobilinogen Negative (Negative) Ur Leukocyte Esterase Negative (Negative) Administered Medications Discontinued Medications Diazepam (Diazepam 5 Mg/Ml 10ml Vial) 2.5 mg IV NOW STA Stop: 07/30/24 16:12 Last Admin: 07/30/24 16:22 Dose: 2.5 mg Documented By: BS Diazepam (Diazepam 5 Mg/Ml 10ml Vial) 2.5 mg IV NOW STA Stop: 07/30/24 18:36 Last Admin: 07/30/24 19:08 Dose: 2.5 mg Documented By: BS Meclizine HCl (Meclizine Hcl 25 Mg Tab) 25 mg PO NOW STA Stop: 07/30/24 16:12 Last Admin: 07/30/24 16:22 Dose: 25 mg Documented By: WILLA Ondansetron HCl (Ondansetron Inj 2 Mg/Ml 2 Ml Vial) 4 mg IV NOW STA Stop: 07/30/24 16:12 Last Admin: 07/30/24 16:22 Dose: 4 mg Documented By: WILLA Imaging Data Radiologist's Impression: Chest X-Ray 07/30/24 12:46 XR chest 1V not portable HISTORY: 74 years-old Female dizzy COMPARISON: 08/17/2018 TECHNIQUE: PA view of the chest FINDINGS: Cardiomediastinal and hilar silhouettes are within normal limits. Spondylitic spurring of the spine. Cholecystectomy. There is no pneumothorax, pleural effusion or pulmonary edema. IMPRESSION: No acute process. ACT 112: Negative or not required by law. The above report was generated using voice recognition software. It may contain grammatical, syntax or spelling errors. Electronically signed by: Rishabh Mohr M.D. 07/30/2024 1:50 PM Discharge Plan Visit Data Chief Complaint: Dizziness Stated Complaint: VERTIGO ED Provider: Rober Pablo Discharge Problem: Dizziness, Vertigo Forms Stand Alone Forms: My [facility] Prescriptions Prescriptions: No Action simvastatin 10 mg Tablet 10 mg PO HS Compound Hrt 1 cap PO BID Rx Instructions: P-E 1E 2.25 E32 E50 TE2 lorazepam 0.5 mg Tablet 0.5 mg PO DAILY PRN (Reason: Anxiety) prasterone (dhea) [DHEA] 25 mg Capsule 25 mg PO BID aspirin 81 mg Tablet,Delayed Release (Dr/Ec) 81 mg PO DAILY lamotrigine 25 mg Tablet 0 mg PO BID Rx Instructions: Pt unsure of strength at this date/time. ciclopirox 8 % solution 1 applic TOPICAL DAILY Rx Instructions: APPLY OVER NAIL AND SURROUNDING SKIN. APPLY DAILY OVER PREVIOUS COAT. AFTER 7 DAYS MAY REMOVE WITH ALCOHOL AND CONTINUE CYCLE Jardiance 25 mg Tablet 25 mg PO DAILY Mounjaro 2.5 mg/0.5 mL pen injector 2.5 mg SUBCUT WK Rx Instructions: Friday evenings meclizine 25 mg tablet 25 mg PO TID PRN (Reason: dizziness) Qty: 30 0RF Referrals Referrals: Sri Morse DO [Primary Care Provider] -
--- NOTE | 2024-07-30 20:05 | History & Physical Report ---
Date of Service July 30, 2024 Assessment & Plan (1) Vertigo: Plan: BPPV Failed outpatient treatment hypertension, stable hyperlipidemia, on statin Rx DM2 on oral medications, reasonable control as of recent hemoglobin A1c of 7.29 June 2024 uterine cancer status post surgery anxiety/mood disorder, stable past tobacco abuse OBS Admit to medical Meclizine or diazepam as needed vertigo attack PT consult for Ginger maneuver in a.m. if still symptomatic Basal bolus insulin, ISS BG goal 110-140, carb count coverage DVT prophylaxis. Lovenox subcu Full code Text document was generated using [employer] voice recognition software. It may contain grammatical or spelling errors. Kindly contact undersigned for clarification of any documentation item in question. History of Present Illness Chief Complaint: Dizziness Primary Care Provider: Sri Morse DO History obtained from patient and records. Medical history significant for hypertension, hyperlipidemia, DM2 on oral medications, uterine cancer status post surgery, migraine, trigeminal neuralgia as per records, anxiety/mood disorder, past tobacco abuse. Last confinement June 2020 for pancreatitis attributed to Apruvia. Patient woke up yesterday morning with dizziness described as spinning, worse on head movement. Mild headache symptoms. No recollection of head trauma. Denies chest pain, SOB. Denies unusual ear ringing or hearing loss. No prior episodes. Patient consulted ER for evaluation yesterday. Unremarkable brain CT and MRI scans. Patient discharged on meclizine as needed Rx for vertigo. Symptoms unresponsive to meclizine Rx at home. Patient return to ER following PCP advice. Medical History as above Surgical History : Partial hysterectomy, dental surgery, cataract surgeries, cholecystectomy, right temporal artery biopsy Family History : DM, breast cancer, heart disease Personal/Social history : Past tobacco abuse, occasional EtOH intake, retired dental hygienist Allergies Allergy/AdvReac Type Severity Reaction Status Date / Time sitagliptin [From Apruvia] AdvReac Severe Pancreatiti Verified 07/30/24 17:27 s Home Medications Medication Instructions Recorded Confirmed Type simvastatin 10 mg tablet 10 mg PO HS 08/17/18 07/30/24 History Compound Hrt 1 cap PO BID 02/23/21 07/30/24 History lorazepam 0.5 mg tablet 0.5 mg PO DAILY PRN Anxiety 02/23/21 07/30/24 History meclizine 25 mg tablet 25 mg PO TID PRN dizziness #30 tabs 07/29/24 07/30/24 Rx aspirin 81 mg tablet,delayed 81 mg PO DAILY 07/30/24 07/30/24 History release ciclopirox 8 % topical solution 1 applic topical DAILY 07/30/24 07/30/24 History empagliflozin 25 mg tablet 25 mg PO DAILY 07/30/24 07/30/24 History (Jardiance) lamotrigine 25 mg tablet 50 mg PO BID 07/30/24 07/30/24 History prasterone (dhea) 25 mg capsule 25 mg PO BID 07/30/24 07/30/24 History tirzepatide 2.5 mg/0.5 mL 2.5 mg subcut WK 07/30/24 07/30/24 History subcutaneous pen injector (Jerome) Past Med/Surg History Problem List Dizziness (Acute) Vertigo (Acute) Cholelithiasis Diabetes Encounter for pre-operative examination Midepigastric pain (Acute) Pancreatitis (Acute) 06/2020 Headache, paroxysmal hemicrania, chronic Idiopathic headaches, possible trigeminal neuralgia > being treated/monitored by PCP Temporal arteritis Biopsy negative 2018 Anxiety Uterine cancer ~1987 History of hysterectomy TIMOTHY History of section x2 Diabetes mellitus, type 2 NIDDM History of colonoscopy Medical History Anxiety Diabetes mellitus, type 2 NIDDM Headache, paroxysmal hemicrania, chronic Idiopathic headaches, possible trigeminal neuralgia > being treated/monitored by PCP Hyperlipidemia Pancreatitis 06/2020 Temporal arteritis Biopsy negative 2018 Trigeminal neuralgia of right side of face Idiopathic headaches, possible trigeminal neuralgia > being treated/monitored by PCP Uterine cancer ~1987 Surgical History History of section x2 History of colonoscopy History of esophagogastroduodenoscopy (EGD) History of hysterectomy TIMOTHY History of temporal artery biopsy Family History Father Diabetes Grandmother (Maternal) Diabetes Grandmother (Paternal) Diabetes Other Family history non-contributory Social History Smoking Status: Former smoker Tobacco Type: Cigarettes Cigarettes Per Day: 1 PPD; Smoking End Date: 2020; Second Hand Exposure: No; Do You Dip or Chew Tobacco: No; Hx Alcohol Use: No Hx Substance Use: No Preferred Language: Amharic Communication Ability: Effective Metal Window Frame Maker Required: No Beliefs That Will Affect Care: None Current Living Situation: Spouse Other Information That Helps Us Care for You: No Feels Safe at Home: Yes Safety Concerns: Feels Safe At This Time Assistive Devices: Glasses Review of Systems Review of Systems: As per HPI, all other systems reviewed and negative Physical Exam Physical Exam: GENERAL: Comfortable, no respiratory distress SKIN: Normal color, warm HEENT: [place] palpebral conjunctivae, no ptosis, dry buccal mucosa; AU : patent EAC, no discharge, intact TM NECK : Supple, no tenderness CHEST : CTA, no tenderness HEART : RRR, no obvious murmurs ABDOMEN: Some distention, nontender EXTREMITIES : No LE swelling/tenderness, palpable pulses, no other conspicuous deformities noted NEUROLOGIC : Coherent, no facial asymmetry, no other gross focality Results & Data Results & Data Vital Signs (Past 12 Hours) Vital Signs Temp Pulse Pulse Resp BP BP Pulse Ox 07/30/24 19:33 108 H 20 97 07/30/24 19:33 130/75 07/30/24 19:00 07/30/24 19:00 07/30/24 19:00 07/30/24 19:00 07/30/24 19:00 07/30/24 19:00 07/30/24 19:00 07/30/24 19:00 86 18 93 07/30/24 19:00 103 H 20 130/75 98 07/30/24 18:36 88 18 93 07/30/24 18:30 139/68 07/30/24 18:30 139/68 07/30/24 18:30 139/68 07/30/24 18:30 139/68 07/30/24 18:30 139/68 07/30/24 18:30 139/68 07/30/24 18:30 139/68 07/30/24 18:30 139/68 07/30/24 18:30 139/68 07/30/24 18:30 139/68 07/30/24 18:12 92 H 19 92 07/30/24 18:00 115/07/30/24 18:00 115/07/30/24 18:00 115/07/30/24 18:00 115/07/30/24 18:00 /07/30/24 18:00 11507/30/24 18:00 115/07/30/24 18:00 115/07/30/24 18:00 115/07/30/24 18:00 11507/30/24 17:54 85 16 91 07/30/24 17:33 86 17 92 07/30/24 17:30 127/68 07/30/24 17:30 127/68 07/30/24 17:30 127/68 07/30/24 17:30 127/68 07/30/24 17:30 127/68 07/30/24 17:30 127/68 07/30/24 17:30 127/68 07/30/24 17:30 127/68 07/30/24 17:30 127/68 07/30/24 17:30 127/68 07/30/24 17:30 127/68 07/30/24 17:27 101 H 20 114/66 91 07/30/24 17:00 82 18 114/66 92 07/30/24 16:43 90 07/30/24 15:15 107 H 19 132/88 94 07/30/24 12:41 36.1 C L 89 18 120/72 95 O2 Del Method 07/30/24 19:33 07/30/24 19:33 07/30/24 19:00 07/30/24 19:00 07/30/24 19:00 07/30/24 19:00 07/30/24 19:00 07/30/24 19:00 07/30/24 19:00 07/30/24 19:00 07/30/24 19:00 Room Air 07/30/24 18:36 07/30/24 18:30 07/30/24 18:30 07/30/24 18:30 07/30/24 18:30 07/30/24 18:30 07/30/24 18:30 07/30/24 18:30 07/30/24 18:30 07/30/24 18:30 07/30/24 18:30 07/30/24 18:12 07/30/24 18:00 07/30/24 18:00 07/30/24 18:00 07/30/24 18:00 07/30/24 18:00 07/30/24 18:00 07/30/24 18:00 07/30/24 18:00 07/30/24 18:00 07/30/24 18:00 07/30/24 17:54 07/30/24 17:33 07/30/24 17:30 07/30/24 17:30 07/30/24 17:30 07/30/24 17:30 07/30/24 17:30 07/30/24 17:30 07/30/24 17:30 07/30/24 17:30 07/30/24 17:30 07/30/24 17:30 07/30/24 17:30 07/30/24 17:27 07/30/24 17:00 07/30/24 16:43 07/30/24 15:15 Room Air 07/30/24 12:41 Room Air Laboratory Results Laboratory Results WBC 6.88 K/ul (4.8-10.8) 07/30/24 12:55 RBC 4.87 M/uL (4.20-5.40) 07/30/24 12:55 Hgb 14.3 g/dl (12.0-16.0) 07/30/24 12:55 Hct 42.8 % (37.0-47.0) 07/30/24 12:55 MCV 87.9 fL (80.0-100.0) 07/30/24 12:55 MCH 29.4 pg (25.0-34.0) 07/30/24 12:55 MCHC 33.4 g/dL (32.0-36.0) 07/30/24 12:55 RDW Std Deviation 45.1 fL (36.4-46.3) 07/30/24 12:55 RDW Coeff of Kyle 14.2 % (11.5-14.5) 07/30/24 12:55 Plt Count 376 K/uL (130-400) 07/30/24 12:55 MPV 9.8 fL (9.4-12.4) 07/30/24 12:55 Immature Gran % (Auto) 0.4 % 07/30/24 12:55 Neut % (Auto) 77.4 % 07/30/24 12:55 Lymph % (Auto) 16.1 % 07/30/24 12:55 [place] % (Auto) 5.4 % 07/30/24 12:55 Eos % (Auto) 0.3 % 07/30/24 12:55 Baso % (Auto) 0.4 % 07/30/24 12:55 Neut # (Auto) 5.32 K/uL (1.40-6.50) 07/30/24 12:55 Lymph # (Auto) 1.11 K/uL (1.20-3.40) L 07/30/24 12:55 [place] # (Auto) 0.37 K/uL (0.11-0.59) 07/30/24 12:55 Eos # (Auto) 0.02 K/uL (0.00-0.50) 07/30/24 12:55 Baso # (Auto) 0.03 K/uL (0.00-0.20) 07/30/24 12:55 Immature Gran # (Auto) 0.03 K/uL (0.01-0.20) 07/30/24 12:55 Sodium 138 mmol/L (136-145) 07/30/24 12:55 Potassium 4.1 mmol/L (3.5-5.1) 07/30/24 12:55 Chloride 103 mmol/L (98-107) 07/30/24 12:55 Carbon Dioxide 28 mmol/L (21-32) 07/30/24 12:55 Anion Gap 7 (3-11) 07/30/24 12:55 BUN 15 mg/dl (6-23) 07/30/24 12:55 Creatinine 0.78 mg/dl (0.6-1.2) 07/30/24 12:55 Est Cr Clr Drug Dosing Not Reportable 07/30/24 12:55 eGFR 80.15 07/30/24 12:55 BUN/Creatinine Ratio 19.2 (10-20) 07/30/24 12:55 Glucose 171 mg/dl (70-99(Fasting)) H 07/30/24 12:55 POC Glucose 89 mg/dl (70-99) 07/30/24 16:11 Calcium 9.8 mg/dl (8.6-10.3) 07/30/24 12:55 Total Bilirubin 0.3 mg/dl (0.2-1.0) 07/30/24 12:55 AST 14 U/L (13-39) 07/30/24 12:55 ALT 10 U/L (7-52) 07/30/24 12:55 Alkaline Phosphatase 66 U/L (34-104) 07/30/24 12:55 Total Protein 8.1 gm/dl (6.0-8.3) 07/30/24 12:55 Albumin 4.6 gm/dl (3.4-5.0) 07/30/24 12:55 Globulin 3.5 gm/dl (2.5-4.0) 07/30/24 12:55 Albumin/Globulin Ratio 1.3 (0.9-2) 07/30/24 12:55 Urine Color Yellow 07/30/24 12:49 Urine Appearance Clear (Clear) 07/30/24 12:49 Urine pH 8.0 (4.5-7.5) H 07/30/24 12:49 Ur Specific [place] 1.026 (1.000-1.030) 07/30/24 12:49 Urine Protein Negative (Negative) 07/30/24 12:49 Urine Glucose (UA) 3+ (Negative) H 07/30/24 12:49 Urine Ketones 1+ (Negative) H 07/30/24 12:49 Urine Blood Negative (Negative) 07/30/24 12:49 Urine Nitrite Negative (Negative) 07/30/24 12:49 Urine Bilirubin Negative (Negative) 07/30/24 12:49 Urine Urobilinogen Negative (Negative) 07/30/24 12:49 Ur Leukocyte Esterase Negative (Negative) 07/30/24 12:49 Impressions Chest X-Ray 07/30/24 12:46 XR chest 1V not portable HISTORY: 74 years-old Female dizzy COMPARISON: 08/17/2018 TECHNIQUE: PA view of the chest FINDINGS: Cardiomediastinal and hilar silhouettes are within normal limits. Spondylitic spurring of the spine. Cholecystectomy. There is no pneumothorax, pleural effusion or pulmonary edema. IMPRESSION: No acute process. ACT 112: Negative or not required by law. The above report was generated using voice recognition software. It may contain grammatical, syntax or spelling errors. Electronically signed by: Rishabh Mohr M.D. 07/30/2024 1:50 PM Diagnostic Findings EKG as per my interpretation :Rate 90, NSR, normal axis, T wave flattening septal leads
[2024-07-30 20:26] LABS: Magnesium 2.2 mg/dl (1.7-2.4)
[2024-07-30] MEDS: SODIUM CHLORIDE 0.9% 1,000 ML IV ONE (20:41)
[2024-07-30 20:43] LABS: Thyroid Stimulating Hormone 1.344 uIu/ml (0.300-4.500)
[2024-07-30] MEDS ORDERED: LORazepam 0.5 MG TAB PO PRN (21:21)
[2024-07-30] MEDS ORDERED: oxyCODONE HCL IR 5 MG TAB (IMMEDIATE RELEASE) PO PRN (21:23)
[2024-07-30] MEDS ORDERED: MECLIZINE HCL 25 MG TAB PO PRN (21:23)
[2024-07-30] MEDS ORDERED: PROMETHAZINE 6.25 MG/50.25 ML BAG IV PRN (21:23)
[2024-07-30] MEDS ORDERED: diazePAM 2 MG TABLET PO PRN (21:25)
[2024-07-30] MEDS ORDERED: PRASTERONE 25 MG PO SCH (21:30)
[2024-07-30] MEDS ORDERED: lamoTRIgine 25 MG TAB PO SCH (21:30)
[2024-07-30] MEDS ORDERED: GLUCAGON FOR INJ 1 MG VIAL SQ PRN (22:26)
[2024-07-30] MEDS ORDERED: CARBOHYDRATES FOR HYPOGLYCEMIA PO PRN (22:26)
[2024-07-30] MEDS ORDERED: DEXTROSE 50% 50 ML SYRINGE IV PRN (22:26)
[2024-07-30] MEDS ORDERED: GLUCOSE 10 TAB/TUBE PO PRN (22:26)
[2024-07-30] MEDS ORDERED: GLUCOSE 40% GEL 15 GM TUBE PO PRN (22:26)
[2024-07-30] MEDS: SIMVASTATIN 10 MG TAB PO SCH (22:43)
[2024-07-30] MEDS: INSULIN ASPART PER UNIT CHARGE SC SCH (23:11)
[2024-07-30] MEDS: lamoTRIgine 25 MG TAB PO SCH (23:12)
[2024-07-31] MEDS: ENOXAPARIN INJ 40 MG/0.4 ML SYR SQ SCH (07:58)
[2024-07-31] MEDS: ASPIRIN 81 MG ECTAB PO SCH (07:58)
--- NOTE | 2024-07-31 14:17 | Hospitalist Progress Note ---
Date of Service July 31, 2024 Assessment & Plan (1) Dizziness: (2) Diabetes: (3) Hyperlipidemia: (4) Migraine: (5) Hypertension: Plan 74 year old female with PMH significant for DMII, HTN, HLD, migraines, and vitamin D deficiency who presented to the ED on 07/30 with dizziness. Dizziness Initially presented to ED on 06/[address] and brain MRI which were unremarkable, was discharged on meclizine but symptoms unresponsive Likely BPPV due to dizziness only when patient is moving her head PT consult for Ginger maneuver PRN meclizine and diazepam DMII On Mounjaro and Jardiance at home Sliding scale insulin HTN Not on antihypertensives at home HLD Continue baby aspirin and simvastatin Migraines Continue lamictal DVT Prophylaxis: Lovenox SQ Code Status: FULL CODE PCP: Dr Sri Morse DO Disposition: Possible dc tomorrow Patient seen in collaboration with Dr Carlson. Please see addendum. I spent a total of 50 minutes coordinating, documenting and providing care for this patient excluding time spent in the performance of separately billed services or time spent by another provider/QHP. Admission and Anticipated Discharge Date Admission Date: July 30, 2024 Supervising Physician Co-Signing Physician Notes Attending Addendum: Case reviewed with the advanced practitioner. I have personally performed a history and physical examination on the patient. I have reviewed the advanced practitioner's documentation on the date of service referenced in note, and I agree with, and take responsibility for the plan of care. please refer to her notes for full details patient seen and examined, records reviewed by myself as well diagnoses and plan of care as per advanced practitioner's notes I spent a total of 35 minutes coordinating, documenting, and providing care for this patient, excluding time spent in the performance of separately billed services or time spent by another provider/QHP. Tr Carlson MD Subjective Patient seen sitting up in bed Reports she only has dizziness and associated nausea if she moves her head Denies fevers, chills, chest pain, SOB, abdominal pain, N/V/D Review of Systems Review of Systems: All systems reviewed & are unremarkable except as noted in HPI & below Physical Exam Physical Exam: VITALS: Reviewed and VSS. GEN: Healthy appearing, well-developed, female, NAD. PSYCH: Good Judgment. AOx3. Normal memory, mood, and affect. HEENT: Head NC/AT. Pupils equal. EOMI. Nares without rhinorrhea. Nasal and oral mucosa pink. NECK: Supple, with no masses. CV: RRR, no m/r/g. LUNGS: CTAB, no w/r/c. ABD: Soft, NT/ND, NBS, no masses or organomegaly. SKIN: Warm, well perfused. No skin rashes or abnormal lesions. MSK: No deformities. EXT: No clubbing, cyanosis, or edema. NEURO: Normal muscle strength and tone. No focal deficits. Results & Data Results & Data Vital Signs (Past 12 Hours) Vital Signs Temp Pulse Pulse Resp BP Pulse Ox O2 Del Method 07/31/24 11:08 36.6 C 74 16 104/66 93 Room Air 07/31/24 08:11 36.6 C 87 16 110/65 94 Room Air 07/31/24 07:04 75 07/31/24 03:50 36.6 C 74 18 108/59 L 93 Room Air Medications Administered Current Inpatient Medications Acetaminophen (Acetaminophen 325 Mg Tab) 650 mg PO QID PRN PRN Reason: pain/fever Stop: 08/29/24 21:22 Aspirin (Aspirin 81 Mg Ectab) 81 mg PO DAILY [facility] Stop: 08/30/24 08:59 Last Admin: 07/31/24 07:58 Dose: 81 mg Dextrose (Dextrose 50% 50 Ml Syringe) 25 - 50 ml IV UD PRN; Protocol PRN Reason: Hypoglycemia Protocol Stop: 08/29/24 22:25 Diazepam (Diazepam 2 Mg Tablet) 2.5 mg PO BID PRN PRN Reason: dizziness Stop: 08/29/24 21:24 Enoxaparin Sodium (Enoxaparin Inj 40 Mg/0.4 Ml Syr) 40 mg SQ QAM CLAUDE Stop: 08/30/24 08:59 Last Admin: 07/31/24 07:58 Dose: 40 mg Glucagon (Glucagon For Inj 1 Mg Vial) 1 mg SQ UD PRN; Protocol PRN Reason: Hypoglycemia Protocol Stop: 08/29/24 22:25 Glucose (Glucose 40% Gel 15 Gm Tube) 15 - 30 gm PO UD PRN; Protocol PRN Reason: Hypoglycemia Protocol Stop: 08/29/24 22:25 Glucose (Glucose 10 Tab/Tube) 4 - 8 tab PO UD PRN; Protocol PRN Reason: Hypoglycemia Protocol Stop: 08/29/24 22:25 Promethazine HCl (Phenergan) 6.25 mg in 50.25 mls @ 201 mls/hr IV Q6H PRN PRN Reason: Nausea And Vomiting Stop: 08/29/24 21:22 Insulin Aspart (Insulin Aspart Per Unit Charge) 0 units SC ACHS [facility] Stop: 08/29/24 22:25 Last Admin: 07/31/24 13:00 Dose: 2 units Lamotrigine (Lamotrigine 25 Mg Tab) 50 mg PO BID [facility]; Protocol Stop: 08/29/24 22:44 Last Admin: 07/31/24 07:58 Dose: 50 mg Lorazepam (Lorazepam 0.5 Mg Tab) 0.5 mg PO TID PRN PRN Reason: Anxiety Stop: 08/29/24 21:20 Meclizine HCl (Meclizine Hcl 25 Mg Tab) 25 mg PO QID PRN PRN Reason: Dizziness or Vertigo Stop: 08/29/24 21:22 Miscellaneous (Carbohydrates For Hypoglycemia ) 15 - 30 gm PO UD PRN PRN Reason: Hypoglycemia Protocol Stop: 08/29/24 22:25 Oxycodone HCl (Oxycodone Hcl Ir 5 Mg Tab (Immediate Release)) 5 mg PO Q4H PRN PRN Reason: Pain Stop: 08/13/24 21:22 Simvastatin (Simvastatin 10 Mg Tab) 10 mg PO HS [facility] Stop: 08/29/24 21:24 Last Admin: 07/30/24 22:43 Dose: 10 mg
[2024-07-31] MEDS: ACETAMINOPHEN 325 MG TAB PO PRN (22:09)
[2024-08-01 08:16] VITALS: RESP 16
[2024-08-01 11:41] VITALS: TEMP 98.1; O2SAT 94
--- NOTE | 2024-08-01 14:35 | Discharge Summary ---
Discharge Summary Date of Service August 01, 2024 Principal Dx & Hospital Course #1 = Principal Diagnosis (1) Dizziness: (2) Diabetes: (3) Hyperlipidemia: (4) Migraine: (5) Hypertension: Plan 74 year old female with PMH significant for DMII, HTN, HLD, migraines, and vitamin D deficiency who presented to the ED on 07/30 with dizziness and found to have BPPV. Dizziness Initially presented to ED on 07/[address] and brain MRI which were unremarkable, was discharged on meclizine but symptoms persisted and returned to ED on 07/30 Likely BPPV due to dizziness only when patient is moving her head or changes position quickly PT consult for Ginger maneuver, which provided patient slight relief of dizziness, but caused muscular pain in her neck and upper back Patient discharged with script for outpatient PT and instructions for modified Ginger maneuver at home Abnormal imaging findings CT angiogram head and neck:Mild calcified plaque within the cavernous and supraclinoid segments of the internal carotid arteries bilaterally brain MRI:mild chronic small vessel ischemic disease CT abdomen/pelvis: Abdominal vasculature: The abdominal aorta is normal in course and caliber noting moderate atherosclerotic calcification. -- continue aspirin, simvastatin Monitor closely as an outpatient DMII Resume Mounjaro and Jardiance per home dosing HTN Not on antihypertensives at home HLD Continue baby aspirin and simvastatin per home dosing Migraines Continue lamictal per home dosing Patient seen in collaboration with Dr Carlson. Please see addendum. Notes For Next Care Provider 74 year old female admitted for dizziness, likely BPPV. Patient saw PT who performed Ginger maneuver with slight relief of dizziness. Patient agreeable to discharge with script for outpatient PT and instructions for modified Ginger maneuver at home. Medication Changes From Visit -No changes to home medications -Patient may continue to take meclizine as needed for dizziness and OTC tylenol and/or ibuprofen for muscle pain related to the Ginger maneuver Admission HPI Per Admitting Provider History obtained from patient and records. Medical history significant for hypertension, hyperlipidemia, DM2 on oral medications, uterine cancer status post surgery, migraine, trigeminal neuralgia as per records, anxiety/mood disorder, past tobacco abuse. Last confinement June 2020 for pancreatitis attributed to Januvia. Patient woke up yesterday morning with dizziness described as spinning, worse on head movement. Mild headache symptoms. No recollection of head trauma. Denies chest pain, SOB. Denies unusual ear ringing or hearing loss. No prior episodes. Patient consulted ER for evaluation yesterday. Unremarkable brain CT and MRI scans. Patient discharged on meclizine as needed Rx for vertigo. Symptoms unresponsive to meclizine Rx at home. Patient return to ER following PCP advice. Medical History as above Surgical History : Partial hysterectomy, dental surgery, cataract surgeries, cholecystectomy, right temporal artery biopsy Family History : DM, breast cancer, heart disease Personal/Social history : Past tobacco abuse, occasional EtOH intake, retired dental hygienist Admission Exam Per Admitting Provider GENERAL: Comfortable, no respiratory distress SKIN: Normal color, warm HEENT: [place] palpebral conjunctivae, no ptosis, dry buccal mucosa; AU : patent EAC, no discharge, intact TM NECK : Supple, no tenderness CHEST : CTA, no tenderness HEART : RRR, no obvious murmurs ABDOMEN: Some distention, nontender EXTREMITIES : No LE swelling/tenderness, palpable pulses, no other conspicuous deformities noted NEUROLOGIC : Coherent, no facial asymmetry, no other gross focality Discharge Exam VITALS: Reviewed and VSS. GEN: Healthy appearing, well-developed, female, NAD. PSYCH: Good Judgment. AOx3. Normal memory, mood, and affect. HEENT: Head NC/AT. Pupils equal. EOMI. Nares without rhinorrhea. Nasal and oral mucosa pink. NECK: Supple, with no masses. CV: RRR, no m/r/g. LUNGS: CTAB, no w/r/c. ABD: Soft, NT/ND, NBS, no masses or organomegaly. SKIN: Warm, well perfused. No skin rashes or abnormal lesions. MSK: No deformities. EXT: No clubbing, cyanosis, or edema. NEURO: Normal muscle strength and tone. No focal deficits. Updated Medication List Medication Instructions Recorded Confirmed Type simvastatin 10 mg tablet 10 mg PO HS 08/17/18 07/30/24 History Compound Hrt 1 cap PO BID 02/23/21 07/30/24 History lorazepam 0.5 mg tablet 0.5 mg PO DAILY PRN Anxiety 02/23/21 07/30/24 History meclizine 25 mg tablet 25 mg PO TID PRN dizziness #30 tabs 07/29/24 07/30/24 Rx aspirin 81 mg tablet,delayed 81 mg PO DAILY 07/30/24 07/30/24 History release ciclopirox 8 % topical solution 1 applic topical DAILY 07/30/24 07/30/24 History empagliflozin 25 mg tablet 25 mg PO DAILY 07/30/24 07/30/24 History (Jardiance) lamotrigine 25 mg tablet 50 mg PO BID 07/30/24 07/30/24 History prasterone (dhea) 25 mg capsule 25 mg PO BID 07/30/24 07/30/24 History tirzepatide 2.5 mg/0.5 mL 2.5 mg subcut WK 07/30/24 07/30/24 History subcutaneous pen injector (Jerome) Hospital Stay Data Consultations 07/30/24 19:51 ED Decision to Admit Stat Diagnostic Imagining Performed Laboratory Results WBC 6.88 K/ul (4.8-10.8) 07/30/24 12:55 RBC 4.87 M/uL (4.20-5.40) 07/30/24 12:55 Hgb 14.3 g/dl (12.0-16.0) 07/30/24 12:55 Hct 42.8 % (37.0-47.0) 07/30/24 12:55 MCV 87.9 fL (80.0-100.0) 07/30/24 12:55 MCH 29.4 pg (25.0-34.0) 07/30/24 12:55 MCHC 33.4 g/dL (32.0-36.0) 07/30/24 12:55 RDW Std Deviation 45.1 fL (36.4-46.3) 07/30/24 12:55 RDW Coeff of Kyle 14.2 % (11.5-14.5) 07/30/24 12:55 Plt Count 376 K/uL (130-400) 07/30/24 12:55 MPV 9.8 fL (9.4-12.4) 07/30/24 12:55 Immature Gran % (Auto) 0.4 % 07/30/24 12:55 Neut % (Auto) 77.4 % 07/30/24 12:55 Lymph % (Auto) 16.1 % 07/30/24 12:55 Alfalfa % (Auto) 5.4 % 07/30/24 12:55 Eos % (Auto) 0.3 % 07/30/24 12:55 Baso % (Auto) 0.4 % 07/30/24 12:55 Neut # (Auto) 5.32 K/uL (1.40-6.50) 07/30/24 12:55 Lymph # (Auto) 1.11 K/uL (1.20-3.40) L 07/30/24 12:55 Alfalfa # (Auto) 0.37 K/uL (0.11-0.59) 07/30/24 12:55 Eos # (Auto) 0.02 K/uL (0.00-0.50) 07/30/24 12:55 Baso # (Auto) 0.03 K/uL (0.00-0.20) 07/30/24 12:55 Immature Gran # (Auto) 0.03 K/uL (0.01-0.20) 07/30/24 12:55 Sodium 138 mmol/L (136-145) 07/30/24 12:55 Potassium 4.1 mmol/L (3.5-5.1) 07/30/24 12:55 Chloride 103 mmol/L (98-107) 07/30/24 12:55 Carbon Dioxide 28 mmol/L (21-32) 07/30/24 12:55 Anion Gap 7 (3-11) 07/30/24 12:55 BUN 15 mg/dl (6-23) 07/30/24 12:55 Creatinine 0.78 mg/dl (0.6-1.2) 07/30/24 12:55 Est Cr Clr Drug Dosing Not Reportable 07/30/24 12:55 eGFR 80.15 07/30/24 12:55 BUN/Creatinine Ratio 19.2 (10-20) 07/30/24 12:55 Glucose 171 mg/dl (70-99(Fasting)) H 07/30/24 12:55 POC Glucose 124 mg/dl (70-99) H 08/01/24 12:18 Calcium 9.8 mg/dl (8.6-10.3) 07/30/24 12:55 Magnesium 2.2 mg/dl (1.7-2.4) 07/30/24 12:55 Total Bilirubin 0.3 mg/dl (0.2-1.0) 07/30/24 12:55 AST 14 U/L (13-39) 07/30/24 12:55 ALT 10 U/L (7-52) 07/30/24 12:55 Alkaline Phosphatase 66 U/L (34-104) 07/30/24 12:55 Total Protein 8.1 gm/dl (6.0-8.3) 07/30/24 12:55 Albumin 4.6 gm/dl (3.4-5.0) 07/30/24 12:55 Globulin 3.5 gm/dl (2.5-4.0) 07/30/24 12:55 Albumin/Globulin Ratio 1.3 (0.9-2) 07/30/24 12:55 TSH 1.344 uIu/ml (0.300-4.500) 07/30/24 12:55 Urine Color Yellow 07/30/24 12:49 Urine Appearance Clear (Clear) 07/30/24 12:49 Urine pH 8.0 (4.5-7.5) H 07/30/24 12:49 Ur Specific [place] 1.026 (1.000-1.030) 07/30/24 12:49 Urine Protein Negative (Negative) 07/30/24 12:49 Urine Glucose (UA) 3+ (Negative) H 07/30/24 12:49 Urine Ketones 1+ (Negative) H 07/30/24 12:49 Urine Blood Negative (Negative) 07/30/24 12:49 Urine Nitrite Negative (Negative) 07/30/24 12:49 Urine Bilirubin Negative (Negative) 07/30/24 12:49 Urine Urobilinogen Negative (Negative) 07/30/24 12:49 Ur Leukocyte Esterase Negative (Negative) 07/30/24 12:49 Impressions Chest X-Ray 07/30/24 12:46 XR chest 1V not portable HISTORY: 74 years-old Female dizzy COMPARISON: 08/17/2018 TECHNIQUE: PA view of the chest FINDINGS: Cardiomediastinal and hilar silhouettes are within normal limits. Spondylitic spurring of the spine. Cholecystectomy. There is no pneumothorax, pleural effusion or pulmonary edema. IMPRESSION: No acute process. ACT 112: Negative or not required by law. The above report was generated using voice recognition software. It may contain grammatical, syntax or spelling errors. Electronically signed by: Rishabh Mohr M.D. 07/30/2024 1:[address] HEAD Clinical History: Dizziness. Technique: Axial computed tomography images were obtained of the brain from the vertex to the skull base without intravenous contrast. Findings: There is no sign of intracranial hemorrhage. There is normal crawford-white matter differentiation with no sign of acute or old infarction. No midline shift or other form of herniation is identified. There is no hydrocephalus. No obvious mass lesion is seen on this noncontrast examination. The visualized portions of the orbits and paranasal sinuses appear unremarkable. The mastoid air cells appear clear Impression: Unremarkable noncontrast CT of the brain Electronically signed by Deo Perez 07-29-2024 7:17 PM Dictated: 07/29/24 1853 CTA HEAD AND NECK Clinical history: Dizziness Technique: Axial computed tomography images were obtained of the brain after the administration of intravenous contrast according to the CT angiogram protocol Findings: There is mild calcified plaque within the cavernous and supraclinoid segments of the internal carotid arteries bilaterally, without stenosis No definite stenosis or aneurysm is seen of the anterior, middle, or posterior cerebral artery circulations. The visualized vertebral arteries and the basilar artery appear unremarkable Impression: Unremarkable CTA of the brain Electronically signed by Deo Perez 07-29-2024 7:18 PM Clinical history: Dizziness Technique: Axial computed tomography images were obtained of the neck after the administration of intravenous contrast according to the CT angiogram protocol Findings: No stenosis is seen of the common carotid arteries bilaterally. The carotid bulbs appear normal. The remainder of the internal carotid arteries appear patent bilaterally. No stenosis of the external carotid arteries is seen The left vertebral artery is dominant. No vertebral stenosis is identified. The visualized thoracic aorta appears unremarkable Impression: Unremarkable CTA of the neck Electronically signed by Deo Perez 07-29-2024 7:16 PM BRAIN MRI EXAM: MR Head Without Intravenous Contrast CLINICAL HISTORY: Reason for exam: dizzy, nausea. TECHNIQUE: Magnetic resonance images of the head/brain without intravenous contrast in multiple planes. COMPARISON: CT head on 07/29/2024. MRI brain on 09/29/2019. FINDINGS: Brain: Mild chronic small vessel ischemic disease. No hemorrhage. No restricted diffusion to suggest acute infarct. Ventricles: Prominence of the ventricles and sulci is likely secondary to cerebral volume loss. No ventriculomegaly. Bones/joints: Unremarkable. No acute fracture. Sinuses: Polyps versus mucous retention cysts of the right maxillary sinus. No acute sinusitis. Mastoid air cells: Unremarkable as visualized. No mastoid effusion. Orbits: Bilateral lens implants. IMPRESSION: No acute findings in the head/brain. Electronically signed by: Gia Taylor M.D. 07/29/24 20:48 PM Dictated: 07/29/242047 Transcribed: 07/29/ CT SCAN OF THE ABDOMEN AND PELVIS WITH IV CONTRAST CLINICAL HISTORY: Generalized abdominal pain. COMPARISON STUDY: Abdominal ultrasound dated 02/09/2021. TECHNIQUE: Following the IV administration of 94 cc of Optiray 320, CT scan of the abdomen and pelvis is performed from the lung bases to the proximal femora. Images are reviewed in the axial, sagittal, and coronal planes. IV contrast was administered without complication. A dose lowering technique was utilized adhering to the principles of ALARA. CT DOSE: 1201.8 mGy.cm FINDINGS: Lung bases: The heart is normal in size and without pericardial effusion. The lung bases are clear noting bibasilar scarring/atelectasis. Liver: The contrast-enhanced liver is normal in size, contour, and attenuation. There is no intrahepatic biliary ductal dilatation. Subcentimeter cysts are noted in the left lobe. The hepatic veins and portal veins are patent. Gallbladder: Surgically absent noting clips in the gallbladder fossa. Spleen: Normal in size and attenuation. Pancreas: Unremarkable. Adrenal glands: Unremarkable. Kidneys: The contrast enhanced kidneys are normal in size and without hydronephrosis. The kidneys enhance symmetrically. There is a punctate nonobstructing right renal calculus. No ureteral stone is seen. Abdominal vasculature: The abdominal aorta is normal in course and caliber noting moderate atherosclerotic calcification. Bowel: There is no bowel obstruction. Mild to moderate fecal retention is seen throughout the colon. The appendix is well-visualized and normal. Peritoneum: There is no intraperitoneal free air or abdominal ascites. There is a fat-containing umbilical hernia. Lymphadenopathy: None. Pelvic viscera: The bladder is normal as visualized. The uterus is surgically absent. No adnexal lesion is seen. Skeletal structures: The skeletal structures are osteopenic. No lytic or blastic lesions are seen. IMPRESSION: 1. No acute infectious or inflammatory findings are identified in the abdomen or pelvis. 2. Right-sided nephrolithiasis. 3. Additional findings as above. ACT 112: Negative or not required by law. Electronically signed by: Bo Daniels M.D. 07/21/2023 11:12 AM Pending Results Patient Have Any Pending Studies at Discharge: No Discharge Instructions Given to Patient (Per Discharging Provider) You were admitted to the hospital for dizziness. You were seen by Physical Therapy who performed the Ginger maneuver, which helped to alleviate your symptoms. Your dizziness was likely caused by benign paroxysmal positional vertigo, a common form of vertigo. MEDICATION CHANGES: You may continue to take meclizine 25mg by mouth as needed up to three times per day if you are still experiencing dizziness You may continue to take over the counter tylenol or ibuprofen as needed for neck or back pain SUMMARY OF TEST RESULTS: None PENDING TEST RESULTS: None RECOMMENDATIONS FOR FOLLOW-UP: Please follow up with your PCP after being in the hospital. We left a message with our nurse to help schedule this for you when she is back to work tomorrow. If your dizziness worsens again, you can follow up with your PCP or return to the ED if needed for another Ginger maneuver. You were given instructions for a modified version of the Ginger maneuver that you can do at home as well. OTHER INSTRUCTIONS: Physical therapy recommended that you get a deep tissue massage from a licensed massage therapist for the neck and upper back pain you experienced after the Ginger maneuver. We also provided you with a script for outpatient physical therapy that you can bring wherever you prefer for further treatment. Seek medical attention if you have: * temperature above 101 * chest pain or trouble breathing * abdominal pain, nausea, vomiting * diarrhea, dark stools or bloody stools * any unanswered questions or concerns Call 911 if symptoms are severe. It has been a pleasure taking care of you. Please take care of yourself. If you have any questions regarding your recent hospitalization please contact [facility] and request Addi Quinones @ [phone]. Total Time Total Time Spent Total Time Spent (In Minutes): I spent a total of 35 minutes coordinating, documenting and providing care for this patient excluding time spent in the performance of separately billed services or time spent by another provider/QHP. Supervising Physician Co-Signing Physician Notes Attending Addendum: Case reviewed with the advanced practitioner. I have personally performed interview and physical examination on the patient. I have reviewed the advanced practitioner's documentation on the date of service referenced in note, and I agree with, and take responsibility for the plan of care. please refer to her notes for full details patient seen and examined, records reviewed by myself as well I spent a total of 25 minutes coordinating, documenting, and providing care for this patient, excluding time spent in the performance of separately billed services or time spent by another provider/QHP. Tr Carlson MD
[2024-08-01] MEDS: IBUPROFEN 600 MG TAB PO PRN (15:29)
[2024-08-01 16:21] VITALS: BP 130/75; PULSE 103
== END 2024-08-01 17:08 | disposition home or self-care (01) ==
LOC: ED 12:26 → 2N 12:26